=== PATIENT | male | born 1970 | race African-American/Black ===

== ENCOUNTER 2019-02-05 10:41 | Inpatient (IN) | payer MEDICAID ==
[~2019-02-05] VITALS: Ht 175.3 cm; Wt 125.9 kg
[~2019-02-05 10:41] MED LIST: ALDACTONE25 MG PO; BACTRIM DS TABL1 TAB PO; BAYER CHEWABLE81 MG PO; COREG6.25 MG PO; LASIX40 MG PO; NORVASC5 MG PO
[2019-02-05 12:14] LABS: ANION GAP 15.3 mmol/L (8-16); CALCIUM 9.3 mg/dL (8.5-10.1); CARBON DIOXIDE 23.1 mmol/L (21.0-32.0); CREATININE - SERUM 1.3 mg/dL (0.6-1.3); POTASSIUM - SERUM 3.4 mmol/L (3.5-5.1); T4 THYROXINE 7.2 ug/dL (4.7-13.3); THYROID STIMULATING HORMONE 3.62 uIU/mL (0.36-3.74); TROPONIN-I 0.039 ng/mL (0.000-0.060)
--- NOTE | 2019-02-05 12:20 | NUR ---
RECEIVED PT FROM ADMISSIONS. PT IS AAO AND UP AD WENDY. RR EVEN AND UNLABORED ON RA. TELEMETRY APPLIED AND PT IS IN UNCONTROLLED A-FIB AT 125. 20GA INITIATED TO THE RIGHT FOREARM X1 ATTEMPT. PT TOLERATED WELL. FLUSHED WITH 10ML OF NS TO CONFIRM PATENCY. [facility] T[facility] ORDERED FOR LUNCH. PT DENIES ANY NEEDS. NO S/S OF DISTRESS NOTED. WILL CTM.
[2019-02-05 12:21] VITALS: BP 121/90; BMI 41.0
--- NOTE | 2019-02-05 15:38 | NUR ---
PT CURRENTLY SITTING UP IN CHAIR. CALL LIGHT W/I REACH. FAMILY AT BEDSIDE. NO S/S OF DISTRESS NOTED. WILL CTM.
[2019-02-05 20:00] VITALS: BP 115/88
--- NOTE | 2019-02-05 20:01 | NUR ---
REPORT RECEIVED, WILL CONTINUE WITH POC. PATIENT A&O, UP AD WENDY. NO S/SX OF DISTRESS NOTED, RR EVEN AND UNLABORED. PATIENT HAS IV TO RT FA WITH LASIX RUNNING, DRSG IS C/D/I. ICE WATER GIVEN. PATIENT DENIES FURTHER NEEDS AT THIS TIME. CL IN REACH, BED LOCKED AND LOWERED. WILL CTM.
[2019-02-06] VITALS: BP 135/100
[2019-02-06 04:00] VITALS: BP 111/80
[2019-02-06 06:32] LABS: BASOPHILS 0.5 % (0-2); EOSINOPHILS 1.5 % (0-7); HEMATOCRIT 42.5 % (42.0-54.0); HEMOGLOBIN 13.8 g/dL (13.5-17.5); IMMATURE GRANULOCYTES 0.3 % (0-5); MCH 27.9 pg (26.0-34.0); MCHC 32.5 g/dL (31.0-37.0); MEAN PLATELET VOLUME 10.2 fL (7.4-10.4); MONOCYTES 6.4 % (2-11); NEUTROPHILS 65.3 % (40-80); PLATELET COUNT 261 10x3/uL (130-400); RBC 4.94 10x6/uL (4.20-6.10); RDW 16.9 % (11.5-14.5); WBC 9.4 10x3/uL (4.8-10.8)
[2019-02-06 06:36] LABS: ANION GAP 18.2 mmol/L (8-16); CALCIUM 9.3 mg/dL (8.5-10.1); CARBON DIOXIDE 23.7 mmol/L (21.0-32.0); POTASSIUM - SERUM 3.9 mmol/L (3.5-5.1)
--- NOTE | 2019-02-06 07:00 | NUR ---
ROUNDING DONE WITH PATIENT HAVING NO NEEDS VOICED EXCEPT "TIRED". ON HEART MONITOR SHOWING FLUTTER, HR 111. UP AMBULATING IN ROOM, ON ROOM AIR. RIGHT FA PIV SEEN WITH SALINE LOCK. WILL CPOC.
[2019-02-06 09:27] VITALS: BP 119/82
--- NOTE | 2019-02-06 13:18 | NUR ---
RESTING WITH EYES CLOSED, RESP EVEN. APPEARS PAIN FREE. WILL CONTINUE TO MONITOR.
[2019-02-06 13:45] VITALS: BP 111/84
[2019-02-06 14:05] VITALS: Ht 175.3 cm; Wt 125.9 kg
--- NOTE | 2019-02-06 15:21 | NUR ---
PATIENT HAS BEEN IN THE SHOWER AND BED LINENS CHANGED.
[2019-02-06 17:18] VITALS: BP 96/72
--- NOTE | 2019-02-06 17:46 | NUR ---
DENIES NEEDS AT THIS TIME. WILL CONTINUE TO MONITOR AND FOLLOW.
[2019-02-06 20:00] VITALS: BP 117/86
--- NOTE | 2019-02-06 20:00 | NUR ---
INITIAL ROUNDS AND ASSESSMENT COMPLETED. PT ALERT/ORIENTED. RESTING WITH NO DISTRESS. LEFT HAND IS SWOLLEN AND PAINFUL TO TOUCH/MOVEMENT. OFFERED PAIN PILL ON 1ST ROUNDS, PT DECLINED TO HOLD OFF UNTIL BEDTIME MEDS GIVEN. NONLABORED RESPIRATIONS ON ROOM AIR. FLUTTER PER TELEMETRY. SALINE LOCK TO RFA. CPOC.
--- NOTE | 2019-02-06 22:00 | NUR ---
BEDTIME MEDS GIVEN + NORCO PAIN PILL FOR LEFT HAND PAIN. PT PLEASANT AND COOPERATIVE. AT BEDSIDE.
[2019-02-07] VITALS: BP 105/85
[2019-02-07 04:00] VITALS: BP 114/75
--- NOTE | 2019-02-07 04:40 | NUR ---
PT RESTING IN BED. AT BEDSIDE. NO REQUESTS FOR PAIN MEDS SINCE BEDTIME. FLUTTER PER TELEMETRY. CPOC. CALL LIGHT IN REACH.
[2019-02-07 06:13] LABS: ANION GAP 12.9 mmol/L (8-16); CALCIUM 9.1 mg/dL (8.5-10.1); CARBON DIOXIDE 28.5 mmol/L (21.0-32.0); CREATININE - SERUM 1.7 mg/dL (0.6-1.3); POTASSIUM - SERUM 3.4 mmol/L (3.5-5.1)
[2019-02-07 06:16] LABS: BASOPHILS 0.2 % (0-2); EOSINOPHILS 0.8 % (0-7); HEMATOCRIT 41.5 % (42.0-54.0); HEMOGLOBIN 13.8 g/dL (13.5-17.5); IMMATURE GRANULOCYTES 0.4 % (0-5); LYMPHOCYTES 25.7 % (15-50); MCH 27.7 pg (26.0-34.0); MCHC 33.3 g/dL (31.0-37.0); MEAN PLATELET VOLUME 10.2 fL (7.4-10.4); MONOCYTES 7.7 % (2-11); NEUTROPHILS 65.2 % (40-80); PLATELET COUNT 283 10x3/uL (130-400); RBC 4.98 10x6/uL (4.20-6.10); WBC 10.7 10x3/uL (4.8-10.8)
[2019-02-07 06:21] LABS: MCV 83.3 fL (80.0-100.0)
--- NOTE | 2019-02-07 07:15 | NUR ---
RECEIVED PT IN BED AAOX4 RESP UNLABORED DENIES ANY NEEDS OR DISCOMFORT AT THIS TIME
[2019-02-07 08:50] VITALS: BP 117/87
[2019-02-07] MEDS ORDERED: ELIQUIS2.5 MG PO (11:25)
[2019-02-07] MEDS ORDERED: AMIODARONE HCL200 MG PO (11:25)
[2019-02-07] MEDS ORDERED: ENTRESTO 24 MG1 EACH PO (11:26)
[2019-02-07] MEDS ORDERED: COLCRYS0.6 MG PO (11:31)
[2019-02-07 12:30] VITALS: BP 110/80
--- NOTE | 2019-02-07 16:52 | NUR ---
SPOKE WITH DR. BOLANOS FOR D/C. WENT OVER HOME MEDICATION LIST WITH DR HARLEY AND WAS APPROVED BY HIM.
--- NOTE | 2019-02-07 18:19 | NUR ---
REVIEWED DISCHARGE INSTRUCTIONS WITH PT STATES UNDERSTANDING COPY GIVEN DCD SALINE LOCK TO RFA WITH IV CATHETER INTACT SITE FREE OF REDNESS OR EDEMA PT DISCHARGED HOME LEFT UNIT IN STABLE CONDITION VIA W/C WITH ALL PERSONAL BELONGINGS
--- NOTE | 2019-02-09 09:23 | MORECARE ---
CASE MANAGEMENT DISCHARGE SUMMARY PATIENT: MADHURI BATEMAN UNIT: [id number] ADM DATE: 02/05/19 AGE: 48 : 66 SEX: M ROOM/BED: D.2120 AUTHOR: ALPHONSO FISHER PHYSICIAN: REFERRING PHYSICIAN: VILMA GLASGOW MD DATE OF SERVICE: 02/09/19 Discharge Plan Patient Name: MADHURI BATEMAN Facility: [facility]:[place] : 1970 Planned Disposition: Home Anticipated Discharge Date: 02/07/19 Discharge Date: 02/07/2019 Expected LOS: 2 Initial Reviewer: [id number] Initial Review Date: 02/09/2019 Generated: 02/09/19 10:22 am Patient Name: MADHURI BATEMAN Page [id number] at 0923 All edits/amendments must be made on the electronic document DICTATION DATE: 02/09/19921 WINDMILL MECHANIC: RYLIE 02/09/19921 RPT#: [id number] DC DATE:02/07/19 STATUS: DIS IN [facility] [address] [place] [address] END OF REPORT
== END 2019-02-07 18:19 | disposition home or self-care (01) | DRG 310 ==
LOC: D.M2 10:41
PROVIDERS: ADMIT Family Medicine; ATTEND Family Medicine
DX: I48.91 Unspecified atrial fibrillation (principal); I48.92 Unspecified atrial flutter; I42.5 Other restrictive cardiomyopathy; I12.9 Hypertensive chronic kidney disease with stage 1 through stage 4 chronic kidney disease, or unspecified chronic kidney disease; N18.9 Chronic kidney disease, unspecified

== ENCOUNTER 2019-03-25 09:30 | Outpatient (CLI) | payer MEDICAID ==
[~2019-03-25] VITALS: Ht 175.3 cm; Wt 119.1 kg
--- NOTE | ~2019-03-25 | HEMODYNAMI ---
PATIENT:MADHURI BATEMAN MEDICAL RECORD: [id number] : 66 LOCATION:[facility] ADMISSION DATE: 03/25/19 Generatedon:03/25/201912:54 Patient name: MADHURI BATEMAN Patient #: [id number] SSN: D OB: 1970 Date of study: 03/25/2019 Page: Of Hemodynamic Procedure Report Patient Data Patient Demographics Procedure consent was obtained First Name: MADHURI Gender: Male Last Name: FRANSICO : 1970 Patient #: [id number] Age: 48 year(s) Race: Black Additional ID: [id number] Contact details [address]: [address] [place] [address] State: [place] City: [place] Zip code: [address] Past Medical History Allergies: No known allergies Admission Admission Data Admission Date: 03/25/2019 Admission Time: 9:30 Arrival Date: 03/25/2019 Arrival Time: 11:00 Admit Source: Other Insurance Payor: Medicaid Height (in.): 68.9 BSA: 2.32 (m2) Height (cm.): 175 BMI: 38.86 (kg/m2) Weight (lbs.): 262.35 Weight (kg.): 119 Lab Results Lab Result Date: 03/25/2019 Lab Result Time: 0:00 Biochemistry Name Units Result Min Max BUN mg/dl 23 --(----)-* 7 18 Creatinine mg/dl 1.6 --(----)-* 0.6 1.3 eGFR ml/min 49 *-(----)-- 90 120 NONAFRICAN CBC Name Units Result Min Max Hemoglobin g/dl 14.5 --(*---)-- 13.5 17.5 Procedure Procedure Types Cath Procedure Diagnostic Procedure Cardioversion External Procedure Description Procedure Date Procedure Date: 03/25/2019 Procedure Start Time: 12:42 Procedure End Time: 12:49 Procedure Staff Name Function Karina Yun RT Line Supply Aris Suazo MD Performing Physician Silvio Streeter RT Monitor Milton Joseph RN Nurse Roman Birch SENIOR SCRUM MASTER Additional personnel Procedure Data Cath Procedure Fluoroscopy Diagnostic fluoroscopy Total fluoroscopy Time: 0 time: 0 min min Diagnostic fluoroscopy Total fluoroscopy dose: 0 dose: 0 mGy mGy Contrast Material Contrast Material Type Amount (ml) Isovue 300 0 Procedure Complications No complications Procedure Medications Medication Administration Route Dosage 0.9% NaCl I.V. 100 ml/hr Oxygen etCO2 Nasal cannula 5 l/min Refer to Anesthesia Notes for Sedation Medications Hemodynamics Rest HGB: 14.5 (g/dl) O2 Consumption: Estimated: 292.51 (ml/min) O2 Consumption index ed: Estimated:126.08 (ml/min/m) Heart Rate: 87 (bpm) Snapshots Pre Cath Intra NCS Post Cath Vital Signs Time Heart Resp SPO2 etCO2 NIBP (mmHg) Rhythm Pain Sedation Rate (ipm) (%) (mmHg) Status Level (bpm) 12:30:26 76 10 100 0 119/90(105) A-Flutter 0 (11) 10(A) , No pain 12:34:26 79 23 98 19.4 130/98(105) A-Flutter 0 (11) 10(A) , No pain 12:38:32 100 19 97 0 111/75(103) A-Flutter 0 (11) 8(A) , No pain 12:43:23 60 13 99 17.9 113/80(98) NSR 0 (11) 9(A) , No pain 12:47:41 24 100 1.4 77/35(68) NSR 0 (11) 9(A) , No pain 12:49:31 100 20.1 128/102(109) NSR 0 (11) 9(A) , No pain Medications Time Medication Route Dose Verified Delivered Reason Notes Effective ness by by 12:32:04 0.9% NaCl I.V. 100 Milton Milton Per ml/hr Jake Joseph physician RN RN 12:32:19 Oxygen etCO2 5 Milton Milton for low Nasal l/min Jake Joseph 02 sats cannula RN RN 12:33:58 Refer to Roman Owens for Anesthesia Kelsy Tierney sedation Notes for SENIOR SCRUM MASTER SENIOR SCRUM MASTER Sedation Medications Procedure Log Time Note 12:18:49 Diagnostic Cath Status : Elective 12:19:09 Admit Source: Other 12::19 Arrival Date: 03/25/2019 11:00:00 AM 12:20:54 Insurance Payor : Medicaid 12:21:03 Patient Height : 68.9 inches 12:21:07 Patient Weight : 262.35 lbs 12::46 Lab Result : eGFR NONAFRICAN 49 ml/min 12::46 Lab Result : Hemoglobin 14.5 g/dl 12::46 Lab Result : BUN 23 mg/dl 12::46 Lab Result : Creatinine 1.6 mg/dl 12:22:11 Milton Joseph RN sent for patient. Start room use. 12:22:15 Time tracking: Regular hours (M-F 7:00 - 5:00) 12::20 Plan of Care:Hemodynamics will remain stable., Cardiac rhythm will remain stable., Comfort level will be maintained., Respiratory function will remain adequate., Patient/ family verbilizes understanding of procedure., Procedure tolerated without complication., Recovers from procedure without complications.. 12:25:53 Patient received from Pre/Post Procedure Room to [facility] 2 Alert and oriented. Tansferred to table in Supine position. 12:25:54 Warm blankets applied, and andrew hugger turned on for patient comfort. 12:25:56 Signed procedure consent form obtained from patient. 12:25:57 Correct patient and procedure confirmed by team. 12:25:58 ECG and BP/O2 sat monitors applied to patient. 12:29:16 Vital chart was started 12:30:59 Baseline sample Acquired. 12:31:02 Rhythm: atrial fibrillation 12:31:04 Full Disclosure recording started 12:31:12 H&P Date Dictated: 03/16/2019 Within 30 days and on chart., H&P Addendum completed by physician on day of procedure. (MUST COMPLETE FOR ALL OUTPATIENTS). 12:31:13 Pre-op teaching completed and patient verbalized understanding. 12:31:13 Pre-procedure instructions explained to patient. 12:31:14 Family in waiting room. 12:31:16 Patient NPO since Midnight. 12:31:27 Patient allergic to No known allergies 12:31:30 Is the patient allergic to Iodine/contrast media? No. 12:31:34 Is patient on blood thinner?Yes 12:31:37 ACC The patient was administered the following blood thiners within the last 24 hours: Eliquis 12:31:39 Patient diabetic? No. 12:31:42 Previous problem with sedation/anesthesia? No ? 12:31:43 Snore? Yes 12:31:44 Sleep apnea? No 12:31:45 Deviated septum? No 12:31:46 Sticks out tongue? Yes 12:31:46 Opens mouth fully? Yes 12:31:48 Airway obstruction? No ? 12:31:50 Dentures? No ? 12:32:04 0.9% NaCl 100 ml/hr I.V. was administered by Milton Joseph RN; Per physician; Verbal order read back and verified. 12:32:19 Oxygen 5 l/min etCO2 Nasal cannula was administered by Milton Joseph RN; for low 02 sats; Verbal order read back and verified. 12:32:21 Alarms reviewed by Ian Black 12:32:29 Quick Combo opened to sterile field. 12:32:42 Physician arrived 12:32:43 --------ALL STOP TIME OUT------ 12:32:52 Physical assessment completed. ASA score P 3 - A patient with severe systemic disease as per Aris Suazo MD. 12:32:58 Sedation plan: TIVA Medication:Propofol 12:33:58 Refer to Anesthesia Notes for Sedation Medications was administered by Roman Tierney CRNA; for sedation; Verbal order read back and verified. 12:35:11 Quick combo pads placed on patients chest and back. 12:41:00 Procedure started. 12:42:13 Defibrillator synced and charged to 275 Joules. 12:42:17 Shock delivered. 12:42:31 Patient cardioverted to sinus rhythm . 12:42:36 Procedure ended.(Physican Out) 12:44:06 Fluoroscopy time 00.00 minutes. 12:44:07 Fluoroscopy dose: 0 mGy 12:44:07 Flurop Dose total: 0 12:44:09 Dose Area Product 0 mGy/cm. 12:44:11 Contrast amount:Isovue 300 0ml. 12:47:44 Post-procedure physical assessment completed. ASA score P 3 - A patient with severe systemic disease as per Aris Suazo MD. 12:47:50 Post procedure rhythm: unchanged. 12:47:57 Post procedure instruction explained to patient.Patient verbalizes understanding. 12:48:34 Procedure and supply charges have been captured, reviewed, submitted and are correct. 12:48:36 Procedure Complication : No complications 12:49:15 See physician's report for complete and final results. 12:49:17 Report given to Pre/Post Procedure Room. 12:49:19 Patient transfered to Pre/Post Procedure Room with Stretcher. 12:49:22 Full Disclosure recording stopped 12:49:22 Procedure ended. 12:49:46 End room use (Document Last) Device Usage Item Manufacture Quantity Catalog Hospital Part Current Minimal Lot# / Name Number Charge Number Stock Stock Herii al# Code Yoomly 1 [id number] Combo Signature Audit Condon Stage Time Signature Unsigned Intra-Procedure 03/25/2019 Silvio Streeter 12:52:17 PM RT(R); Aris Suazo MD; Milton Joseph RN [place] [id number] [place] [address]
[~2019-03-25 09:30] MED LIST changes: +AMIODARONE HCL200 MG PO; +COLCRYS0.6 MG PO; +ELIQUIS2.5 MG PO; +ENTRESTO 24 MG1 EACH PO
[2019-03-25 10:34] VITALS: BP 188/88; Ht 175.3 cm; Wt 119.1 kg
[2019-03-25 10:46] LABS: BASOPHILS 0.9 % (0-2); EOSINOPHILS 3.4 % (0-7); HEMATOCRIT 43.3 % (42.0-54.0); HEMOGLOBIN 14.5 g/dL (13.5-17.5); IMMATURE GRANULOCYTES 0.2 % (0-5); LYMPHOCYTES 27.8 % (15-50); MCH 27.4 pg (26.0-34.0); MCHC 33.5 g/dL (31.0-37.0); MCV 81.7 fL (80.0-100.0); MEAN PLATELET VOLUME 9.8 fL (7.4-10.4); MONOCYTES 3.9 % (2-11); NEUTROPHILS 63.8 % (40-80); PLATELET COUNT 297 10x3/uL (130-400); RDW 16.1 % (11.5-14.5); WBC 5.6 10x3/uL (4.8-10.8)
[2019-03-25 10:54] LABS: ANION GAP 14.5 mmol/L (8-16); CALCIUM 9.4 mg/dL (8.5-10.1); CARBON DIOXIDE 25.5 mmol/L (21.0-32.0); CREATININE - SERUM 1.6 mg/dL (0.6-1.3)
[2019-03-25 11:24] LABS: INR 1.1 (0.85-1.17); PROTIME 13.7 SECONDS (11.6-15.0)
--- NOTE | 2019-03-25 13:00 | NUR ---
PATIENT ARRIVED TO ROOM 7, PLACED ON CM. VSS. PATIENT ROUSES TO VERBAL STIMULI.
--- NOTE | 2019-03-25 13:15 | NUR ---
PATIENT RESTING. VSS ON ROOM AIR. SO AT BEDSIDE, QUESTIONS ANSWERED. NO C/O PAIN, NUMBNESS, OR TINGLING. NO N/V.
--- NOTE | 2019-03-25 13:45 | NUR ---
PATIENT TRANSPORTED VIA WHEELCHAIR TO CAR WITH S.O. DRIVING, ALL BELONGINGS WITH PATIENT.
--- NOTE | 2019-03-25 14:25 | NUR ---
PATIENT AWAKE AND ALERT, EDUCATION GIVEN TO PATIENT AND SIGNIFICANT OTHER, ALL QUESTIONS ANSWERED, BOTH VOICE UNDERSTANDING. VSS ON ROOM AIR. NO C/O PAIN, NUMBNESS, OR TINGLING. IV REMOVED. PATIENT VOIDED WITHOUT DIFFICULTY.
--- NOTE | 2019-03-26 09:14 | EC ---
PATIENT:MADHURI BATEMAN DATE OF SERVICE: 03/25/19 SEX: M MEDICAL RECORD: [id number] DATE OF : [birth year] LOCATION:D.[facility] AGE OF PATIENT: 48 ADMISSION DATE: 03/25/19 REFERRING PHYSICIAN: INTERPRETING PHYSICIAN: DOREEN SUAZO MD ECHOCARDIOGRAM REPORT ECHO CHARGES 4 ECHO COMPLETE Date: 03/25/19 CLINICAL DIAGNOSIS: AFIB, CARDIOMYOPATHY ECHOCARDIOGRAPHIC MEASUREMENTS (adult normal given) AC root (d.<3.7cm) 2.9 cm LV Septum d (<1.2 cm> 1.0 cm Valve Excursion 1.4 cm LV Septum (systole) 1.2 cm Left Atria (s.<4.0cm> 3.9 cm LVPW d(<1.2cm) 1.1 cm RV (d.<2.3cm) 2.6 cm LVPW (sytole) 1.5 cm LV diastole(<5.6CM) 6.7 cm MV E-F(>70mm/sec) cm LV systole 5.4 cm LVOT Diameter 2.3 cm MV exc.(>10mm) cm Est.ejection fraction (50-75%) % DOPPLER: LVIT cm/sec A 26 cm/sec E 66 cm/sec LA cm/sec RVSP 25.3 mmHg LVOT 71 cm/sec AOP1/2T m/s Asc. Ao 109 cm/sec RVOT 48 cm/sec RA cm/sec PA 54 cm/sec AV Gradient Peak 4.7 mmHg AV Mean 3.2 mmHg AV Area 2.7 cm MV Gradient Peak 2.9 mmHg MV Mean 1.2 mmHg MV Area cm COMMENTS: Aquatic Centre Manager: Jana DICKERSON Custom Shop Worker: Areli Suazo TAPE# PACS Pericardial Effusion N DATE OF SERVICE: 03/25/2019 ECHOCARDIOGRAM FINDINGS: 1. Left ventricular chamber size is dilated. Left ventricular systolic function is markedly reduced at 15% to 20%. 2. Left atrium is upper limits of normal. Right atrium and right ventricle chamber sizes are mildly dilated. 3. Valvular structures have normal structure and motion. ECHOCARDIOGRAM REPORT [id number] MADHURI BATEMAN 4. Doppler interrogation only reveals mild aortic insufficiency, mild mitral regurgitation, no other valvular insufficiency or stenosis. Pulmonary systolic pressure is estimated at 25 mmHg. 5. No evidence of pericardial effusion or left ventricular thrombus. TRANSINT:[id number] Voice Confirmation ID: [id number] DOCUMENT ID: [id number] DOREEN SUAZO MD at 0914 CC: [id number] DICTATION DATE: 03/25/19 1228 BARREL BRIDGE ASSEMBLER: 03/25/192039 DEP CLI 03/25/19 [place] [id number] [place] [id number]
--- NOTE | 2019-03-26 09:14 | OP ---
PATIENT NAME: MADHURI BATEMAN MEDICAL RECORD: [id number] :66 LOCATION:D.CAT ADMISSION DATE: SURGEON: DOREEN OSWALD MD DATE OF OPERATION: 03/25/2019 PROCEDURE: DC cardioversion. INDICATION: Atrial fibrillation. IV conscious sedation per anesthesia. Continuous heart rate, O2 saturation, blood pressure monitoring were all undertaken, all of which remains stable. He received 1 shock at 275 joules restoring sinus rhythm. OVERALL IMPRESSION: Successful DC cardioversion from atrial fibrillation to sinus rhythm. TRANSINT:[id number] Voice Confirmation ID: [id number] DOCUMENT ID: [id number] DOREEN OSWALD MD at 0914 CC: [id number] DICTATION DATE: 03/25/19 1245 ARBORER: 03/25/192110 DEP CLI 03/25/19 [facility] [address] [place] [address]
== END 2019-03-25 13:45 ==
LOC: D.CATH 09:30 → D.ECHO 11:00 → D.CATH 12:30
PROVIDERS: ATTEND Internal Medicine Interventional Cardiology
DX: I48.91 Unspecified atrial fibrillation (principal)

== ENCOUNTER 2019-07-03 23:25 | Emergency (ER) | payer MEDICAID ==
[2019-03-25 10:34] VITALS: Ht 175.3 cm; Wt 123.2 kg
[~2019-07-03] VITALS: Ht 175.3 cm; Wt 123.2 kg
[2019-07-03 23:58] LABS: BASOPHILS 0.4 % (0-2); EOSINOPHILS 0.5 % (0-7); HEMATOCRIT 34.7 % (42.0-54.0); IMMATURE GRANULOCYTES 0.3 % (0-5); LYMPHOCYTES 10.7 % (15-50); MCH 27.4 pg (26.0-34.0); MCHC 31.7 g/dL (31.0-37.0); MCV 86.3 fL (80.0-100.0); MEAN PLATELET VOLUME 8.9 fL (7.4-10.4); MONOCYTES 6.3 % (2-11); NEUTROPHILS 81.8 % (40-80); PLATELET COUNT 346 10x3/uL (130-400); RBC 4.02 10x6/uL (4.20-6.10); RDW 16.4 % (11.5-14.5); WBC 11.1 10x3/uL (4.8-10.8)
[2019-07-04 00:05] LABS: CALC OSMOLALITY 279 mosm/kg (275-300); CALCIUM 9.3 mg/dL (8.5-10.1); CARBON DIOXIDE 24.9 mmol/L (21.0-32.0); CHLORIDE - SERUM 104 mmol/L (98-107); CREATININE - SERUM 1.7 mg/dL (0.6-1.3); GLUCOSE 111 mg/dL (74-106); POTASSIUM - SERUM 4.5 mmol/L (3.5-5.1); SODIUM 138 mmol/L (136-145); UREA NITROGEN 21 mg/dL (7-18); eGFR NON AFRICAN AMERICAN 45 mL/min (90-120)
[2019-07-04 00:23] LABS: ALBUMIN 2.4 g/dL (3.4-5.0); ALKALINE PHOSPHATASE 115 U/L (46-116); ALT (SGPT) 28 U/L (10-68); BILIRUBIN - TOTAL 0.72 mg/dL (0.2-1.3); CKMB 1.1 U/L (0.0-3.6); CREATINE KINASE 59 UL (21-232); PRO BNP 2402 pg/mL (0-125); PROTEIN - SERUM 8.6 g/dL (6.4-8.2)
[2019-07-04 02:25] VITALS: BP 156/87
== END 2019-07-04 02:25 | disposition home or self-care (01) ==
LOC: D.ER 23:25
PROVIDERS: Family Medicine
DX: I11.0 Hypertensive heart disease with heart failure (principal); I50.9 Heart failure, unspecified; I48.92 Unspecified atrial flutter

== ENCOUNTER 2019-08-15 03:30 | Inpatient (IN) | payer MEDICAID ==
[~2019-08-15] VITALS: Ht 175.3 cm; Wt 105.0 kg
[2019-08-15] VITALS (22 sets, daily range): BP systolic 78–157; BP diastolic 61–148; Ht 175.3 cm; Wt 105.0 kg
[2019-08-15 03:38] LABS: BASOPHILS 0.1 % (0-2); EOSINOPHILS 0 % (0-7); HEMATOCRIT 35.3 % (42.0-54.0); HEMOGLOBIN 11.2 g/dL (13.5-17.5); IMMATURE GRANULOCYTES 0.8 % (0-5); LYMPHOCYTES 5.6 % (15-50); MCH 26.9 pg (26.0-34.0); MCHC 31.7 g/dL (31.0-37.0); MCV 84.9 fL (80.0-100.0); MEAN PLATELET VOLUME 8.9 fL (7.4-10.4); NEUTROPHILS 89.5 % (40-80); PLATELET COUNT 251 10x3/uL (130-400); RBC 4.16 10x6/uL (4.20-6.10); RDW 17.3 % (11.5-14.5); WBC 16.7 10x3/uL (4.8-10.8)
[2019-08-15] MEDS ORDERED: HYDROCODON-ACE1 EA10 PO (03:39)
[2019-08-15] MEDS ORDERED: COREG6.25 MG PO (03:40)
[2019-08-15] MEDS ORDERED: ENTRESTO 24 MG1 EACH PO (03:41)
[2019-08-15 03:45] LABS: CALC OSMOLALITY 276 mosm/kg (275-300); CALCIUM 8.8 mg/dL (8.5-10.1); CARBON DIOXIDE 22.7 mmol/L (21.0-32.0); CHLORIDE - SERUM 101 mmol/L (98-107); GLUCOSE 136 mg/dL (74-106); POTASSIUM - SERUM 4.1 mmol/L (3.5-5.1); SODIUM 136 mmol/L (136-145); UREA NITROGEN 20 mg/dL (7-18); eGFR NON AFRICAN AMERICAN 38 mL/min (90-120)
[2019-08-15 04:05] LABS: ALBUMIN 2.7 g/dL (3.4-5.0); ALKALINE PHOSPHATASE 134 U/L (30-120); ALT (SGPT) 40 U/L (10-68); BILIRUBIN - TOTAL 2.54 mg/dL (0.2-1.3); CKMB 1.5 U/L (0.0-3.6); CREATINE KINASE 142 UL (21-232); PRO BNP 15477 pg/mL (0-125); PROTEIN - SERUM 8.6 g/dL (6.4-8.2)
[2019-08-15 04:07] LABS: TROPONIN-I 0.486 ng/mL (0.000-0.060)
[2019-08-15 06:16] LABS: CKMB 1.6 U/L (0.0-3.6); CREATINE KINASE 163 UL (21-232)
[2019-08-15 06:17] LABS: TROPONIN-I 0.525 ng/mL (0.000-0.060)
[2019-08-15] MEDS ORDERED: COREG25 MG PO (09:03)
[2019-08-15 11:56] LABS: CKMB 1.3 U/L (0.0-3.6)
[2019-08-15 11:59] LABS: CREATINE KINASE 260 UL (21-232)
[2019-08-15 12:01] LABS: TROPONIN-I 0.885 ng/mL (0.000-0.060)
[2019-08-15 15:00] LABS: % SATURATION 5 % (15-55); IRON 18 ug/dl (35-150); TOTAL IRON BIND CAPACITY 305 ug/dl (260-445); UNSAT IRON BIND CAPACITY 287 ug/dl (150-375)
[2019-08-15 18:33] LABS: CKMB 2.8 U/L (0.0-3.6)
[2019-08-15 18:42] LABS: CREATINE KINASE 492 UL (21-232)
[2019-08-15 18:43] LABS: TROPONIN-I 1.237 ng/mL (0.000-0.060)
[2019-08-16] VITALS (22 sets, daily range): BP systolic 83–109; BP diastolic 65–94
[2019-08-16 06:07] LABS: HEMATOCRIT 33.3 % (42.0-54.0); HEMOGLOBIN 10.8 g/dL (13.5-17.5); MCHC 32.4 g/dL (31.0-37.0); MCV 83.3 fL (80.0-100.0); MEAN PLATELET VOLUME 9.7 fL (7.4-10.4); PLATELET COUNT 231 10x3/uL (130-400); RDW 17.9 % (11.5-14.5); WBC 25.1 10x3/uL (4.8-10.8)
[2019-08-16 06:20] LABS: ALBUMIN 2.2 g/dL (3.4-5.0); ANION GAP 20.2 mmol/L (8-16); BILIRUBIN - TOTAL 2.98 mg/dL (0.2-1.3); CALCIUM 8.5 mg/dL (8.5-10.1); CARBON DIOXIDE 18.3 mmol/L (21.0-32.0); POTASSIUM - SERUM 4.5 mmol/L (3.5-5.1); PROTEIN - SERUM 8.1 g/dL (6.4-8.2)
[2019-08-16 06:21] LABS: CREATININE - SERUM 3.3 mg/dL (0.6-1.3)
[2019-08-16 07:08] LABS: LYMPHOCYTES 6 % (15-50); MONOCYTES 4 % (2-11); NEUTROPHILS 57 % (40-80)
[2019-08-16 07:09] LABS: PLATELET ESTIMATE NORMAL
[2019-08-17] VITALS (24 sets, daily range): BP systolic 91–130; BP diastolic 67–98
[2019-08-17 05:08] LABS: BASOPHILS 0 % (0-2); EOSINOPHILS 0 % (0-7); HEMATOCRIT 33.4 % (42.0-54.0); HEMOGLOBIN 11.1 g/dL (13.5-17.5); IMMATURE GRANULOCYTES 0.6 % (0-5); LYMPHOCYTES 5.1 % (15-50); MCH 27.1 pg (26.0-34.0); MCHC 33.2 g/dL (31.0-37.0); MCV 81.7 fL (80.0-100.0); MEAN PLATELET VOLUME 9.8 fL (7.4-10.4); MONOCYTES 4.5 % (2-11); NEUTROPHILS 89.8 % (40-80); PLATELET COUNT 211 10x3/uL (130-400); RBC 4.09 10x6/uL (4.20-6.10); WBC 23.1 10x3/uL (4.8-10.8)
[2019-08-17 05:15] LABS: ALBUMIN 2.3 g/dL (3.4-5.0); BILIRUBIN - TOTAL 2.18 mg/dL (0.2-1.3); CALCIUM 8.1 mg/dL (8.5-10.1); CREATININE - SERUM 3.6 mg/dL (0.6-1.3); POTASSIUM - SERUM 3.9 mmol/L (3.5-5.1); PROTEIN - SERUM 7.6 g/dL (6.4-8.2)
[2019-08-17 05:37] LABS: ANION GAP 15.7 mmol/L (8-16); CARBON DIOXIDE 24.2 mmol/L (21.0-32.0)
--- NOTE | 2019-08-17 14:33 | OP ---
PATIENT NAME: MADHURI BATEMAN MEDICAL RECORD: [id number] :[birth year] LOCATION:.[facility] D.2307 ADMISSION DATE:08/15/19 SURGEON: RUDY TREVINO MD DATE OF OPERATION: 08/15/2019 PREOPERATIVE DIAGNOSES: 1. Uncontrolled atrial fibrillation 2. Renal insufficiency. 3. Lack of significant peripheral IV access. POSTOPERATIVE DIAGNOSES: 1. Uncontrolled atrial fibrillation 2. Renal insufficiency. 3. Lack of significant peripheral IV access. PROCEDURE: Insertion of right internal jugular triple lumen central venous catheter. SURGEON: Rudy Trevino MD CURB SETTER HELPER: None. BLOOD LOSS: Minimal. ANESTHESIA: Local. This procedure was performed yesterday on 08/15/2019, was not until today that I dictated this procedure note. OPERATIVE COURSE: The patient was seen in his ICU room. He was positioned supine. The right neck was sterilely prepped and draped. Local anesthetic was used to infiltrate the skin and subcutaneous tissue at the base of right neck. Right internal jugular vein was percutaneously accessed in an antegrade fashion. Guidewire was passed easily. A small skin kristin was accomplished. A vascular dilator was used to dilate a subcutaneous tract. A 16-cm triple lumen central venous catheter was inserted to the hub. It was sutured in place times 3. All lumens flushed easily and aspirated dark, nonpulsatile blood. A sterile dressing was applied. A chest x-ray revealed adequate placement of the central venous line. Today while on rounds, I was told that 2 of the lumens were not functioning. I was able to clear both lines by utilizing normal saline within a tuberculin syringe and by injecting it rapidly down the 2 lumens that were not functioning. This cleared all 3 lines, all 3 flushed easily and aspirated dark, nonpulsatile blood. TRANSINT:[id number] Voice Confirmation ID: [id number] DOCUMENT ID: [id number] OPERATIVE REPORT [id number] FRANSICOMADHURI RUDY TREVINO MD at 1433 CC: [id number] DICTATION DATE: 08/16/191809 BEHAVIOR ANALYST: 08/17/19 0446 ADM IN [facility] [address] [place] [address]
--- NOTE | 2019-08-17 15:35 | MORECARE ---
CASE MANAGEMENT DISCHARGE SUMMARY PATIENT: MADHURI BATEMAN UNIT: [id number] ADM DATE: 08/15/19 AGE: 49 : 66 SEX: M ROOM/BED: D.2307 AUTHOR: NATALIA,DOC PHYSICIAN: REFERRING PHYSICIAN: NOAH PARRA MD DATE OF SERVICE: 08/17/19 Discharge Plan Patient Name: MADHURI BATEMAN Facility: [facility]:[place] : 1970 Planned Disposition: Anticipated Discharge Date: Discharge Date: Expected LOS: Initial Reviewer: [id number] Initial Review Date: 08/17/2019 Generated: 08/17/19 4:34 pm Comments DCP- Discharge Planning Updated by [id number]: Muriel Benz on 08/17/19 2:[address] Patient Name: MADHURI BATEMAN Admission Status: ER Accout number: [id number] Admission Date: 08-15-2019 : 1970 Admission Diagnosis: Attending: NOAH PARRA Current LOS: 2 Anticipated DC Date: Planned Disposition: Primary Insurance: MEDICAID [place] Discharge Planning Comments: CM MET WITH PATIENT AFTER OBTAINING VERBAL CONSENT. PATIENT STATES MAY NEED HOME HEALTH AND OXYGEN AT TIME OF DC. [facility] SIGNED FOR ANY HH AND ANY DME. MAY NEED WALK TEST PRIOR TO DC. NO OTHER NEEDS IDENTIFIED. CM TO FOLLOW AND ASSIST NEEDED. Seed Cleaner Operator: Muriel Benz DCPIA - Discharge Planning Initial Assessment Updated by [id number]: Muriel Bezn on 08/17/19 3:28 pm * Is the patient Alert and Oriented? Yes * PCP DANIKA * Pharmacy [facility] * Preadmission Environment Home with Family * ADLs Independent * Additional services required to return to the preadmission environment? Yes * Can the patient safely return to the preadmission environment? Yes * Has this patient been hospitalized within the prior 30 days at any hospital? No Coverage Notice Reviewer: [id number] - Muriel Benz Notice Issued Date-Time: 08/17/2019 15:25 Notice Type: Patient Choice Letter Notice Delivered To: Patient Relationship to Patient: Support Team Member Name: Delivery Method: HAND - Hand Delivered Evelina Days: Prior Verbal Notification: Recipient Understood Notice: Yes Recipient Signature: Yes Med Rec Note Co-signed by Attending: Coverage Notice Comment: ANY HH, ANY DME COMPANY Patient Name: MADHURI BATEMAN Page 81213 at 1535 All edits/amendments must be made on the electronic document DICTATION DATE: 08/17/191533 POLYSTYRENE MOLDING MACHINE TENDER: RYLIE 08/17/191533 RPT#: [id number] DC DATE: STATUS: ADM IN [facility] [address] [place] [address] END OF REPORT
[2019-08-18] VITALS (23 sets, daily range): BP systolic 109–153; BP diastolic 77–107
[2019-08-18 04:26] LABS: BASOPHILS 0.1 % (0-2); EOSINOPHILS 0 % (0-7); HEMATOCRIT 32.8 % (42.0-54.0); HEMOGLOBIN 11.3 g/dL (13.5-17.5); IMMATURE GRANULOCYTES 0.7 % (0-5); LYMPHOCYTES 5.7 % (15-50); MCH 27.5 pg (26.0-34.0); MCHC 34.5 g/dL (31.0-37.0); MCV 79.8 fL (80.0-100.0); MEAN PLATELET VOLUME 9.2 fL (7.4-10.4); NEUTROPHILS 88.5 % (40-80); PLATELET COUNT 203 10x3/uL (130-400); RBC 4.11 10x6/uL (4.20-6.10); RDW 16.4 % (11.5-14.5); WBC 19.2 10x3/uL (4.8-10.8)
[2019-08-18 04:59] LABS: ALBUMIN 2.1 g/dL (3.4-5.0); ANION GAP 14.2 mmol/L (8-16); BILIRUBIN - TOTAL 1.7 mg/dL (0.2-1.3); CALCIUM 8.7 mg/dL (8.5-10.1); CARBON DIOXIDE 24.8 mmol/L (21.0-32.0); CREATININE - SERUM 3.4 mg/dL (0.6-1.3); PROTEIN - SERUM 8.4 g/dL (6.4-8.2)
--- NOTE | 2019-08-18 16:19 | MORECARE ---
CASE MANAGEMENT DISCHARGE SUMMARY PATIENT: MADHURI BATEMAN UNIT: [id number] ADM DATE: 08/15/19 AGE: 49 : 66 SEX: M ROOM/BED: D.2307 AUTHOR: NATALIA,DOC PHYSICIAN: REFERRING PHYSICIAN: NOAH PARRA MD DATE OF SERVICE: 08/18/19 Discharge Plan Patient Name: MADHURI BATEMAN Facility: [facility]:[place] : 1970 Planned Disposition: Anticipated Discharge Date: Discharge Date: Expected LOS: Initial Reviewer: [email or web address] Initial Review Date: 08/17/2019 Generated: 08/18/19 5:19 pm DCP- Discharge Planning Updated by [id number]: Muriel Benz on 08/17/19 2:[address] Patient Name: MADHURI BATEMAN Admission Status: ER Accout number: [id number] Admission Date: 08-15-2019 : 1970 Admission Diagnosis: Attending: NOAH PARRA Current LOS: 2 Anticipated DC Date: Planned Disposition: Primary Insurance: MEDICAID [place] Discharge Planning Comments: CM MET WITH PATIENT AFTER OBTAINING VERBAL CONSENT. PATIENT STATES MAY NEED HOME HEALTH AND OXYGEN AT TIME OF DC. [facility] SIGNED FOR ANY HH AND ANY DME. MAY NEED WALK TEST PRIOR TO DC. NO OTHER NEEDS IDENTIFIED. CM TO FOLLOW AND ASSIST NEEDED. Transit Mixer Operator: Muriel Benz DCPIA - Discharge Planning Initial Assessment Updated by [email or web address]: Muriel Benz on 08/17/19 3:28 pm * Is the patient Alert and Oriented? Yes * PCP DANIKA * Pharmacy [facility] * Preadmission Environment Home with Family * ADLs Independent * Additional services required to return to the preadmission environment? Yes * Can the patient safely return to the preadmission environment? Yes * Has this patient been hospitalized within the prior 30 days at any hospital? No Coverage Notice Reviewer: [id number] - Muriel Benz Notice Issued Date-Time: 08/17/2019 15:25 Notice Type: Patient Choice Letter Notice Delivered To: Patient Relationship to Patient: Chef Instructor Name: Delivery Method: HAND - Hand Delivered Evelina Days: Prior Verbal Notification: Recipient Understood Notice: Yes Recipient Signature: Yes Med Rec Note Co-signed by Attending: Coverage Notice Comment: ANY HH, ANY DME COMPANY Last DP export: 08/17/19 2:35 p Patient Name: MADHURI BATEMAN Page [phone] at 1619 All edits/amendments must be made on the electronic document DICTATION DATE: 08/18/191618 AMBULATORY CARE NURSE: RYLIE 08/18/191618 RPT#: [id number] DC DATE: STATUS: ADM IN [facility] [address] [place] [address] END OF REPORT
[2019-08-19] VITALS (13 sets, daily range): BP systolic 108–141; BP diastolic 79–108
[2019-08-19 06:32] LABS: ALBUMIN 2.5 g/dL (3.4-5.0); ANION GAP 15.7 mmol/L (8-16); BILIRUBIN - TOTAL 2.53 mg/dL (0.2-1.3); CALCIUM 9.3 mg/dL (8.5-10.1); CARBON DIOXIDE 27.9 mmol/L (21.0-32.0); CREATININE - SERUM 2.9 mg/dL (0.6-1.3); POTASSIUM - SERUM 3.6 mmol/L (3.5-5.1); PROTEIN - SERUM 8.2 g/dL (6.4-8.2)
[2019-08-19 08:08] LABS: HEMATOCRIT 37.3 % (42.0-54.0); HEMOGLOBIN 12.6 g/dL (13.5-17.5); MCH 26.6 pg (26.0-34.0); MCHC 33.8 g/dL (31.0-37.0); MCV 78.9 fL (80.0-100.0); MEAN PLATELET VOLUME 10.1 fL (7.4-10.4); PLATELET COUNT 241 10x3/uL (130-400); RBC 4.73 10x6/uL (4.20-6.10); RDW 16.6 % (11.5-14.5); WBC 20.5 10x3/uL (4.8-10.8)
[2019-08-19 10:02] LABS: LYMPHOCYTES 6 % (15-50); MONOCYTES 7 % (2-11); NEUTROPHILS 86 % (40-80)
[2019-08-19 10:03] LABS: PLATELET ESTIMATE NORMAL
[2019-08-20] VITALS (19 sets, daily range): BP systolic 91–134; BP diastolic 65–104
[2019-08-20 06:13] LABS: ALBUMIN 2.9 g/dL (3.4-5.0); ANION GAP 12.8 mmol/L (8-16); BILIRUBIN - TOTAL 3.06 mg/dL (0.2-1.3); CALCIUM 9.4 mg/dL (8.5-10.1); CARBON DIOXIDE 31.6 mmol/L (21.0-32.0); CREATININE - SERUM 2.6 mg/dL (0.6-1.3); POTASSIUM - SERUM 3.4 mmol/L (3.5-5.1); PROTEIN - SERUM 8.9 g/dL (6.4-8.2)
[2019-08-20 06:48] LABS: BASOPHILS 0.1 % (0-2); EOSINOPHILS 0.1 % (0-7); HEMOGLOBIN 12.2 g/dL (13.5-17.5); IMMATURE GRANULOCYTES 0.7 % (0-5); MCH 26.6 pg (26.0-34.0); MCHC 33.9 g/dL (31.0-37.0); MCV 78.6 fL (80.0-100.0); MEAN PLATELET VOLUME 9.8 fL (7.4-10.4); MONOCYTES 6.3 % (2-11); NEUTROPHILS 87.8 % (40-80); PLATELET COUNT 245 10x3/uL (130-400); RBC 4.58 10x6/uL (4.20-6.10); RDW 16.5 % (11.5-14.5); WBC 16.2 10x3/uL (4.8-10.8)
[2019-08-20 12:02] LABS: BILIRUBIN NEGATIVE (NEGATIVE); GLUCOSE NEGATIVE (NEGATIVE); KETONE NEGATIVE (NEGATIVE); NITRITE NEGATIVE (NEGATIVE); UROBILINOGEN NORMAL (NORMAL)
[2019-08-20 12:03] LABS: BACTERIA FEW /hpf (NEGATIVE); EPITHELIAL CELLS 0-5 /hpf (0-5); RED CELLS - URINE OCC /hpf (0-5); WHITE CELLS - URINE 0-5 /hpf (NEGATIVE)
[2019-08-21] VITALS (21 sets, daily range): BP systolic 91–141; BP diastolic 53–92
[2019-08-21 09:42] LABS: BASOPHILS 0.1 % (0-2); EOSINOPHILS 0.1 % (0-7); HEMATOCRIT 35.7 % (42.0-54.0); HEMOGLOBIN 11.9 g/dL (13.5-17.5); IMMATURE GRANULOCYTES 0.6 % (0-5); LYMPHOCYTES 4.4 % (15-50); MCH 26.4 pg (26.0-34.0); MCHC 33.3 g/dL (31.0-37.0); MCV 79.2 fL (80.0-100.0); MEAN PLATELET VOLUME 9.3 fL (7.4-10.4); MONOCYTES 7.2 % (2-11); NEUTROPHILS 87.6 % (40-80); PLATELET COUNT 242 10x3/uL (130-400); RBC 4.51 10x6/uL (4.20-6.10); RDW 16.4 % (11.5-14.5); WBC 16.7 10x3/uL (4.8-10.8)
[2019-08-21 10:02] LABS: ANION GAP 11.3 mmol/L (8-16); CARBON DIOXIDE 34.4 mmol/L (21.0-32.0); CREATININE - SERUM 2.3 mg/dL (0.6-1.3); POTASSIUM - SERUM 3.7 mmol/L (3.5-5.1)
[2019-08-22] VITALS (24 sets, daily range): BP systolic 95–163; BP diastolic 68–92
[2019-08-22 05:07] LABS: CALCIUM 9.1 mg/dL (8.5-10.1); CARBON DIOXIDE 34.5 mmol/L (21.0-32.0); CREATININE - SERUM 2.3 mg/dL (0.6-1.3); POTASSIUM - SERUM 3.5 mmol/L (3.5-5.1); VANCOMYCIN - RANDOM 12.3 ug/mL (10.0-20.0)
[2019-08-22 05:23] LABS: HEMATOCRIT 34.2 % (42.0-54.0); HEMOGLOBIN 11.6 g/dL (13.5-17.5); MCH 26.7 pg (26.0-34.0); MCHC 33.9 g/dL (31.0-37.0); MCV 78.6 fL (80.0-100.0); MEAN PLATELET VOLUME 9.8 fL (7.4-10.4); PLATELET COUNT 280 10x3/uL (130-400); RBC 4.35 10x6/uL (4.20-6.10); RDW 16.5 % (11.5-14.5); WBC 21.5 10x3/uL (4.8-10.8)
[2019-08-22 05:24] LABS: EOSINOPHILS 2 % (0-7); LYMPHOCYTES 9 % (15-50); MONOCYTES 6 % (2-11); NEUTROPHILS 83 % (40-80); PLATELET ESTIMATE NORMAL
[2019-08-22 06:50] LABS: ALBUMIN 2.2 g/dL (3.4-5.0)
[2019-08-22 15:58] LABS: BILIRUBIN NEGATIVE (NEGATIVE); GLUCOSE NEGATIVE (NEGATIVE); KETONE NEGATIVE (NEGATIVE); NITRITE NEGATIVE (NEGATIVE); UROBILINOGEN NORMAL (NORMAL)
[2019-08-23] VITALS (24 sets, daily range): BP systolic 84–151; BP diastolic 55–103
[2019-08-23 04:33] LABS: BASOPHILS 0.1 % (0-2); EOSINOPHILS 0.2 % (0-7); HEMATOCRIT 33.1 % (42.0-54.0); HEMOGLOBIN 11.7 g/dL (13.5-17.5); IMMATURE GRANULOCYTES 0.9 % (0-5); LYMPHOCYTES 5.3 % (15-50); MCH 27.4 pg (26.0-34.0); MCHC 35.3 g/dL (31.0-37.0); MCV 77.5 fL (80.0-100.0); MEAN PLATELET VOLUME 9.3 fL (7.4-10.4); MONOCYTES 6.5 % (2-11); PLATELET COUNT 275 10x3/uL (130-400); RBC 4.27 10x6/uL (4.20-6.10); RDW 16.5 % (11.5-14.5); WBC 25.7 10x3/uL (4.8-10.8)
[2019-08-23 04:58] LABS: ANION GAP 10.1 mmol/L (8-16); CALCIUM 9.5 mg/dL (8.5-10.1); CARBON DIOXIDE 34.1 mmol/L (21.0-32.0); CREATININE - SERUM 2.4 mg/dL (0.6-1.3); POTASSIUM - SERUM 3.2 mmol/L (3.5-5.1); VANCOMYCIN - RANDOM 20.1 ug/mL (10.0-20.0)
[2019-08-24] VITALS (8 sets, daily range): BP systolic 98–127; BP diastolic 74–98
[2019-08-24 04:45] LABS: CALCIUM 9.2 mg/dL (8.5-10.1); CARBON DIOXIDE 35.3 mmol/L (21.0-32.0); CREATININE - SERUM 2.5 mg/dL (0.6-1.3); POTASSIUM - SERUM 3.3 mmol/L (3.5-5.1)
[2019-08-24 04:46] LABS: HEMATOCRIT 33.7 % (42.0-54.0); HEMOGLOBIN 11.7 g/dL (13.5-17.5); MCH 26.9 pg (26.0-34.0); MCHC 34.7 g/dL (31.0-37.0); MCV 77.5 fL (80.0-100.0); MEAN PLATELET VOLUME 9.6 fL (7.4-10.4); PLATELET COUNT 290 10x3/uL (130-400); RBC 4.35 10x6/uL (4.20-6.10); RDW 16.4 % (11.5-14.5); WBC 20.7 10x3/uL (4.8-10.8)
[2019-08-24 07:20] LABS: EOSINOPHILS 1 % (0-7); LYMPHOCYTES 11 % (15-50); MONOCYTES 4 % (2-11); NEUTROPHILS 82 % (40-80); PLATELET ESTIMATE NORMAL
[2019-08-25] VITALS: BP 108/70
[2019-08-25 04:00] VITALS: BP 96/77
[2019-08-25 06:05] LABS: BASOPHILS 0.1 % (0-2); EOSINOPHILS 0.5 % (0-7); HEMATOCRIT 34.2 % (42.0-54.0); HEMOGLOBIN 11.5 g/dL (13.5-17.5); IMMATURE GRANULOCYTES 0.9 % (0-5); LYMPHOCYTES 5.2 % (15-50); MCH 26.7 pg (26.0-34.0); MCHC 33.6 g/dL (31.0-37.0); MEAN PLATELET VOLUME 10.4 fL (7.4-10.4); MONOCYTES 8.4 % (2-11); NEUTROPHILS 84.9 % (40-80); PLATELET COUNT 327 10x3/uL (130-400); RDW 18.2 % (11.5-14.5)
[2019-08-25 06:22] LABS: MCV 79.5 fL (80.0-100.0)
[2019-08-25 06:24] LABS: ALBUMIN 2.1 g/dL (3.4-5.0); ANION GAP 10.6 mmol/L (8-16); BILIRUBIN - DIRECT 2.5 mg/dL (0.00-0.30); BILIRUBIN - INDIRECT 0.76 mg/dL (0.00-1.00); BILIRUBIN - TOTAL 3.26 mg/dL (0.2-1.3); CALCIUM 9.1 mg/dL (8.5-10.1); CARBON DIOXIDE 34.3 mmol/L (21.0-32.0); CREATININE - SERUM 2.8 mg/dL (0.6-1.3); PROTEIN - SERUM 8.4 g/dL (6.4-8.2); VANCOMYCIN - RANDOM 22.1 ug/mL (10.0-20.0)
[2019-08-25 06:26] LABS: POTASSIUM - SERUM 2.9 mmol/L (3.5-5.1)
[2019-08-25 09:00] VITALS: BP 119/73
[2019-08-25 12:00] VITALS: BP 94/60
[2019-08-25 20:00] VITALS: BP 110/79
[2019-08-26] VITALS: BP 112/75
[2019-08-26 04:00] VITALS: BP 109/81
[2019-08-26 06:09] LABS: BASOPHILS 0.2 % (0-2); EOSINOPHILS 0.5 % (0-7); HEMATOCRIT 35.8 % (42.0-54.0); HEMOGLOBIN 11.7 g/dL (13.5-17.5); IMMATURE GRANULOCYTES 0.7 % (0-5); LYMPHOCYTES 7.1 % (15-50); MCH 26.7 pg (26.0-34.0); MCHC 32.7 g/dL (31.0-37.0); MEAN PLATELET VOLUME 10.5 fL (7.4-10.4); MONOCYTES 12.6 % (2-11); NEUTROPHILS 78.9 % (40-80); PLATELET COUNT 320 10x3/uL (130-400); RBC 4.39 10x6/uL (4.20-6.10); RDW 18.4 % (11.5-14.5); WBC 12.9 10x3/uL (4.8-10.8)
[2019-08-26 06:12] LABS: MCV 81.5 fL (80.0-100.0)
[2019-08-26 06:53] LABS: ANION GAP 12.6 mmol/L (8-16); CALCIUM 8.8 mg/dL (8.5-10.1); CARBON DIOXIDE 32.9 mmol/L (21.0-32.0); CREATININE - SERUM 2.9 mg/dL (0.6-1.3)
[2019-08-26 07:05] LABS: POTASSIUM - SERUM 3.5 mmol/L (3.5-5.1)
[2019-08-26 09:00] VITALS: BP 114/85
[2019-08-26 12:00] VITALS: BP 131/78
--- NOTE | 2019-08-26 13:07 | MORECARE ---
CASE MANAGEMENT DISCHARGE SUMMARY PATIENT: MADHURI BATEMAN UNIT: [id number] ADM DATE: 08/15/19 AGE: 49 : 66 SEX: M ROOM/BED: D.8251 AUTHOR: ALPHONSO FISHER PHYSICIAN: REFERRING PHYSICIAN: NOAH PARRA MD DATE OF SERVICE: 08/26/19 Discharge Plan Patient Name: MADHURI BATEMAN Facility: [facility]:[place] : 1970 Planned Disposition: Anticipated Discharge Date: Discharge Date: Expected LOS: Initial Reviewer: [id number] Initial Review Date: 08/17/2019 Generated: 08/26/19 2:07 pm DCP- Discharge Planning Updated by [email or web address]: Muriel Benz on 08/17/19 2:[address] Patient Name: MADHURI BATEMAN Admission Status: ER Accout number: [id number] Admission Date: 08-15-2019 : 1970 Admission Diagnosis: Attending: NOAH PARRA Current LOS: 2 Anticipated DC Date: Planned Disposition: Primary Insurance: MEDICAID [place] Discharge Planning Comments: CM MET WITH PATIENT AFTER OBTAINING VERBAL CONSENT. PATIENT STATES MAY NEED HOME HEALTH AND OXYGEN AT TIME OF DC. [facility] SIGNED FOR ANY HH AND ANY DME. MAY NEED WALK TEST PRIOR TO DC. NO OTHER NEEDS IDENTIFIED. CM TO FOLLOW AND ASSIST NEEDED. Geophysical Computer: Muriel Benz DCPIA - Discharge Planning Initial Assessment Updated by [id number]: Muriel Benz on 08/17/19 3:28 pm * Is the patient Alert and Oriented? Yes * PCP DANIKA * Pharmacy [facility] * Preadmission Environment Home with Family * ADLs Independent * Additional services required to return to the preadmission environment? Yes * Can the patient safely return to the preadmission environment? Yes * Has this patient been hospitalized within the prior 30 days at any hospital? No External Providers External Provider: [facility] Next Contact Date: Service Request Date: Service Type: Resolution: Reviewer: Comments: Coverage Notice Reviewer: [email or web address] Vince Benz Notice Issued Date-Time: 08/17/2019 15:25 Notice Type: Patient Choice Letter Notice Delivered To: Patient Relationship to Patient: Platen Press Feeder Name: Delivery Method: HAND - Hand Delivered Evelina Days: Prior Verbal Notification: Recipient Understood Notice: Yes Recipient Signature: Yes Med Rec Note Co-signed by Attending: Coverage Notice Comment: ANY HH, ANY DME COMPANY Last DP export: 08/18/19 3:20 p Patient Name: MADHURI BATEMAN Page [phone] at 1307 All edits/amendments must be made on the electronic document DICTATION DATE: 08/26/19 1307 UNDERGROUND SUPERVISOR: RYLIE 08/26/19 1307 RPT#: [id number] DC DATE: STATUS: ADM IN [facility] [address] [place] [address] END OF REPORT
[2019-08-26 15:11] LABS: AEROBE ID Final report (())
[2019-08-26 16:00] VITALS: BP 123/83
[2019-08-26 20:00] VITALS: BP 108/60
[2019-08-27 04:00] VITALS: BP 90/64
[2019-08-27 05:18] LABS: BASOPHILS 0.2 % (0-2); EOSINOPHILS 0.6 % (0-7); HEMATOCRIT 33.9 % (42.0-54.0); HEMOGLOBIN 11.1 g/dL (13.5-17.5); IMMATURE GRANULOCYTES 0.6 % (0-5); LYMPHOCYTES 8.5 % (15-50); MCH 26.2 pg (26.0-34.0); MCHC 32.7 g/dL (31.0-37.0); MCV 80.1 fL (80.0-100.0); MONOCYTES 9.7 % (2-11); NEUTROPHILS 80.4 % (40-80); PLATELET COUNT 340 10x3/uL (130-400); RBC 4.23 10x6/uL (4.20-6.10); RDW 18.4 % (11.5-14.5); WBC 12.4 10x3/uL (4.8-10.8)
[2019-08-27 05:38] LABS: ANION GAP 12.8 mmol/L (8-16); CALCIUM 9.1 mg/dL (8.5-10.1); CARBON DIOXIDE 29.2 mmol/L (21.0-32.0); CREATININE - SERUM 2.7 mg/dL (0.6-1.3); VANCOMYCIN - RANDOM 19.3 ug/mL (10.0-20.0)
--- NOTE | 2019-08-27 09:46 | MORECARE ---
CASE MANAGEMENT DISCHARGE SUMMARY PATIENT: MADHURI BATEMAN UNIT: [id number] ADM DATE: 08/15/19 AGE: 49 : 66 SEX: M ROOM/BED: D.5179 AUTHOR: NATALIA,DOC PHYSICIAN: REFERRING PHYSICIAN: NOAH PARRA MD DATE OF SERVICE: 08/27/19 Discharge Plan Patient Name: MADHURI BATEMAN Facility: [facility]:[place] : 1970 Planned Disposition: Anticipated Discharge Date: Discharge Date: Expected LOS: Initial Reviewer: [id number] Initial Review Date: 08/17/2019 Generated: 08/27/19 10:45 am Comments DCP- Discharge Planning Updated by [id number]: Tata Velazco on 08/27/19 8:[address] [facility] FOR [facility], TO THE BEDSIDE THIS AM. SHE STATED SHE HAD SPOKEN WITH THE PATIENT AND TOLD HIM HE COULD NOT GO HOME. SHE STATES SHE FIRMLY ADVISED HIM TO PLAN ON REHAB SERVICES. SHE EXPLAINED HE IS TOO WEAK TO MANAGE AT HOME EVEN WITH [facility], SHE STATED THE PATIENT NEEDS AN ICD AND WILL NEED TO BE STRONGER. CM TO THE BEDSIDE TO SPEAK WITH THE PATIENT. THE VOLUNTEER HAD JUST ESCORTED VISITORS TO HIS ROOM. WILL REVISIT. DCP- Discharge Planning Updated by [email or web address]: Muriel Benz on 08/17/19 2:[address] Patient Name: MADHURI BATEMAN Admission Status: ER Accout number: [id number] Admission Date: 08-15-2019 : 1970 Admission Diagnosis: Attending: NOAH PARRA Current LOS: 2 Anticipated DC Date: Planned Disposition: Primary Insurance: MEDICAID [place] Discharge Planning Comments: CM MET WITH PATIENT AFTER OBTAINING VERBAL CONSENT. PATIENT STATES MAY NEED HOME HEALTH AND OXYGEN AT TIME OF DC. [facility] SIGNED FOR ANY HH AND ANY DME. MAY NEED WALK TEST PRIOR TO DC. NO OTHER NEEDS IDENTIFIED. CM TO FOLLOW AND ASSIST NEEDED. Vegetable Specker: Muriel Benz DCPIA - Discharge Planning Initial Assessment Updated by [id number]: Muriel Benz on 08/17/19 3:28 pm * Is the patient Alert and Oriented? Yes * PCP DANIKA * [facility] * Preadmission Environment Home with Family * ADLs Independent * Additional services required to return to the preadmission environment? Yes * Can the patient safely return to the preadmission environment? Yes * Has this patient been hospitalized within the prior 30 days at any hospital? No Coverage Notice Reviewer: [id number] Vince Benz Notice Issued Date-Time: 08/17/2019 15:25 Notice Type: Patient Choice Letter Notice Delivered To: Patient Relationship to Patient: Casino Host Name: Delivery Method: HAND - Hand Delivered Evelina Days: Prior Verbal Notification: Recipient Understood Notice: Yes Recipient Signature: Yes Med Rec Note Co-signed by Attending: Coverage Notice Comment: ANY HH, ANY DME COMPANY Last DP export: 08/26/19 12:07 p Patient Name: MDAHURI BATEMAN Page [phone] at 0946 All edits/amendments must be made on the electronic document DICTATION DATE: 08/27/19944 BIOMETRICS INSTRUCTOR: RYLIE 08/27/19944 RPT#: [id number] DC DATE: STATUS: ADM IN [facility] [address] [place] [address] END OF REPORT
--- NOTE | 2019-08-27 11:17 | MORECARE ---
CASE MANAGEMENT DISCHARGE SUMMARY PATIENT: MADHURI BATEMAN UNIT: [id number] ADM DATE: 08/15/19 AGE: 49 : 66 SEX: M ROOM/BED: D.3386 AUTHOR: NATALIADOC PHYSICIAN: REFERRING PHYSICIAN: NOAH PARRA MD DATE OF SERVICE: 08/27/19 Discharge Plan Patient Name: MADHURI BATEMAN Facility: [facility]:[place] : 1970 Planned Disposition: Anticipated Discharge Date: Discharge Date: Expected LOS: Initial Reviewer: [id number] Initial Review Date: 08/17/2019 Generated: 08/27/19 12:17 pm Comments DCP- Discharge Planning Updated by [email or web address]: Tata Velazco on 08/27/19 10:[address] CM TO THE BEDSIDE TO SPEAK WITH THE PATIENT. EXPLAINED I HAD REVIEWED HIS CHART AND SPOKEN W/ [facility] ON HER ROUNDS. THE PATIENT DOES NOT WANT REHAB , HE HAS MEDICAID AND SKILLED REHAB WOULD BE HIS ONLY OPTION. HE FEELS NO ONE IS LISTENING TO HIM OR RESPECTING HIS CHOICES. HE WANTS CM TO KNOW HE IS NOT HOMELESS. HE [facility] HE HAS A VISITOR , LAURA CHRISTIANSON, WHO CAME WHILE THE CM WAS VISITING. HE GAVE PERMISSION TO DISCUSS DISCHARGE W/ HER. MS CHRISTIANSON STATES HE CAN STAY WITH HER AND SHE WILL PROVIDE CARE. SHE STATES SHE HAS KNOWN HIM FOR A NUMBER OF YEARS. SHE STATES SHE OWNS A HOME WHICH IS HANDICAP ACCESSIBLE. SHE HAS PROVIDED CARE FOR OTHERS AND FEELS SHE CAN TAKE CARE OF HIM WITH INSTRUCTION AND TRAINING. WOULD BE GRATEFUL FOR ANY HOME HEALTH AND STATES SHE WOULD FOLLOW MEDICAL PLAN. THE PATIENT IS IN AGREEMENT W/ HER OFFER. HE HAS HAD 2 OTHER PERSONS WILLING TO HELP BUT MS CHRISTIANSON HAS HAD SOME TRAINING. SHE EXPRESSED CONCERN REGARDING HIS LOWER EXTREMITIES AND FEET. CM WILL NOTIFY WOUND CARE NURSE SHE SAW THE PATIENT EARLIER IN PATIENT'S STAY. PATIENT STATES HE HAS DIFFICULTY W/ AMBULATION SOMETIMES BECAAUSE OF HIS FEET. PATIENT AND MS CHRISTIANSON TO DISCUSS HOME OPTION. CM TO FOLLOW, DCP- Discharge Planning Updated by [id number]: Tata Velazco on 08/27/19 8:[address] [facility] FOR [facility], TO THE BEDSIDE THIS AM. SHE STATED SHE HAD SPOKEN WITH THE PATIENT AND TOLD HIM HE COULD NOT GO HOME. SHE STATES SHE FIRMLY ADVISED HIM TO PLAN ON REHAB SERVICES. SHE EXPLAINED HE IS TOO WEAK TO MANAGE AT HOME EVEN WITH [facility], SHE STATED THE PATIENT NEEDS AN ICD AND WILL NEED TO BE STRONGER. CM TO THE BEDSIDE TO SPEAK WITH THE PATIENT. THE VOLUNTEER HAD JUST ESCORTED VISITORS TO HIS ROOM. WILL REVISIT. DCP- Discharge Planning Updated by [id number]: Muriel Benz on 08/17/19 2:[address] Patient Name: MADHURI BATEMAN Admission Status: ER Accout number: [id number] Admission Date: 08-15-2019 : 1970 Admission Diagnosis: Attending: NOAH PARRA Current LOS: 2 Anticipated DC Date: Planned Disposition: Primary Insurance: MEDICAID [place] Discharge Planning Comments: CM MET WITH PATIENT AFTER OBTAINING VERBAL CONSENT. PATIENT STATES MAY NEED HOME HEALTH AND OXYGEN AT TIME OF DC. [facility] SIGNED FOR ANY HH AND ANY DME. MAY NEED WALK TEST PRIOR TO DC. NO OTHER NEEDS IDENTIFIED. CM TO FOLLOW AND ASSIST NEEDED. Taker Off Braker Machine: Muriel Benz DCPIA - Discharge Planning Initial Assessment Updated by [email or web address]: Muriel Benz on 08/17/19 3:28 pm * Is the patient Alert and Oriented? Yes * PCP DANIKA * Pharmacy [facility] * Preadmission Environment Home with Family * ADLs Independent * Additional services required to return to the preadmission environment? Yes * Can the patient safely return to the preadmission environment? Yes * Has this patient been hospitalized within the prior 30 days at any hospital? No Coverage Notice Reviewer: [id number] - Muriel Benz Notice Issued Date-Time: 08/17/2019 15:25 Notice Type: Patient Choice Letter Notice Delivered To: Patient Relationship to Patient: Post Framer Name: Delivery Method: HAND - Hand Delivered Evelina Days: Prior Verbal Notification: Recipient Understood Notice: Yes Recipient Signature: Yes Med Rec Note Co-signed by Attending: Coverage Notice Comment: ANY HH, ANY DME COMPANY Last DP export: 08/27/19 8:46 a Patient Name: MADHURI BATEMAN Page 77028 at 1117 All edits/amendments must be made on the electronic document DICTATION DATE: 08/27/191116 ADHESIVE BANDAGE MACHINE OPERATOR: RYLIE 08/27/191116 RPT#: [id number] DC DATE: STATUS: ADM IN [facility] [address] [place] [address] END OF REPORT
[2019-08-27 14:35] VITALS: BP 121/90
--- NOTE | 2019-08-27 16:39 | MORECARE ---
CASE MANAGEMENT DISCHARGE SUMMARY PATIENT: MADHURI BATEMAN UNIT: [id number] ADM DATE: 08/15/19 AGE: 49 : 66 SEX: M ROOM/BED: D.0554 AUTHOR: NATALIA,DOC PHYSICIAN: REFERRING PHYSICIAN: NOAH PARRA MD DATE OF SERVICE: 08/27/19 Discharge Plan Patient Name: MADHURI BATEMAN Facility: [facility]:[place] : 1970 Planned Disposition: Anticipated Discharge Date: Discharge Date: Expected LOS: Initial Reviewer: [email or web address] Initial Review Date: 08/17/2019 Generated: 08/27/19 5:39 pm Comments DCP- Discharge Planning Updated by [id number]: Tata Velazco on 08/27/19 3:[address] LATE ENTRY 1145 CM SPOKE WITH THE WOUND CARE NURSE, PERSONALLY, REQUESTING UPDATED ASSESSMENT OF PATIENT'S LOWER EXTREMITIES. INITIAL WOUND ASSESSMENT 08/17/2019. PATIENT'S VISITOR COMMENTING ON CONDITION OF LEGS AND FEET. DCP- Discharge Planning Updated by [email or web address]: Tata Velazco on 08/27/19 10:[address] CM TO THE BEDSIDE TO SPEAK WITH THE PATIENT. EXPLAINED I HAD REVIEWED HIS CHART AND SPOKEN W/ MS ROJO ON HER ROUNDS. THE PATIENT DOES NOT WANT REHAB , HE HAS MEDICAID AND SKILLED REHAB WOULD BE HIS ONLY OPTION. HE FEELS NO ONE IS LISTENING TO HIM OR RESPECTING HIS CHOICES. HE WANTS TO KNOW HE IS NOT HOMELESS. HE HAS STAYED W/ HIS STEPMOTHER AT THE [facility]. HE HAS A VISITOR , LAURA CHRISTIANSON, WHO CAME WHILE THE CM WAS VISITING. HE GAVE PERMISSION TO DISCUSS DISCHARGE W/ HER. MS CHRISTIANSON STATES HE CAN STAY WITH HER AND SHE WILL PROVIDE CARE. SHE STATES SHE HAS KNOWN HIM FOR A NUMBER OF YEARS. SHE STATES SHE OWNS A HOME WHICH IS HANDICAP ACCESSIBLE. SHE HAS PROVIDED CARE FOR OTHERS AND FEELS SHE CAN TAKE CARE OF HIM WITH INSTRUCTION AND TRAINING. WOULD BE GRATEFUL FOR ANY HOME HEALTH AND STATES SHE WOULD FOLLOW MEDICAL PLAN. THE PATIENT IS IN AGREEMENT W/ HER OFFER. HE HAS HAD 2 OTHER PERSONS WILLING TO HELP BUT MS CHRISTIANSON HAS HAD SOME TRAINING. SHE EXPRESSED CONCERN REGARDING HIS LOWER EXTREMITIES AND FEET. CM WILL NOTIFY WOUND CARE NURSE SHE SAW THE PATIENT EARLIER IN PATIENT'S STAY. PATIENT STATES HE HAS DIFFICULTY W/ AMBULATION SOMETIMES BECAAUSE OF HIS FEET. PATIENT AND MS CHRISTIANSON TO DISCUSS HOME OPTION. CM TO FOLLOW, DCP- Discharge Planning Updated by [id number]: Tatatramaine Velazco on 08/27/19 8:[address] [facility], TO THE BEDSIDE THIS AM. SHE STATED SHE HAD SPOKEN WITH THE PATIENT AND TOLD HIM HE COULD NOT GO HOME. SHE STATES SHE FIRMLY ADVISED HIM TO PLAN ON REHAB SERVICES. SHE EXPLAINED HE IS TOO WEAK TO MANAGE AT HOME EVEN WITH [facility], SHE STATED THE PATIENT NEEDS AN ICD AND WILL NEED TO BE STRONGER. CM TO THE BEDSIDE TO SPEAK WITH THE PATIENT. THE VOLUNTEER HAD JUST ESCORTED VISITORS TO HIS ROOM. WILL REVISIT. DCP- Discharge Planning Updated by [id number]: Muriel Benz on 08/17/19 2:[address] Patient Name: MADHURI BATEMAN Admission Status: ER Accout number: [id number] Admission Date: 08-15-2019 : 1970 Admission Diagnosis: Attending: NOAH PARRA Current LOS: 2 Anticipated DC Date: Planned Disposition: Primary Insurance: MEDICAID [place] Discharge Planning Comments: CM MET WITH PATIENT AFTER OBTAINING VERBAL CONSENT. PATIENT STATES MAY NEED HOME HEALTH AND OXYGEN AT TIME OF DC. [facility] SIGNED FOR ANY HH AND ANY DME. MAY NEED WALK TEST PRIOR TO DC. NO OTHER NEEDS IDENTIFIED. CM TO FOLLOW AND ASSIST NEEDED. Multimedia Services Coordinator: Muriel Benz DCPIA - Discharge Planning Initial Assessment Updated by [email or web address]: Muriel Benz on 08/17/19 3:28 pm * Is the patient Alert and Oriented? Yes * PCP DANIKA * Pharmacy [facility] * Preadmission Environment Home with Family * ADLs Independent * Additional services required to return to the preadmission environment? Yes * Can the patient safely return to the preadmission environment? Yes * Has this patient been hospitalized within the prior 30 days at any hospital? No Coverage Notice Reviewer: [id number] - Muriel Benz Notice Issued Date-Time: 08/17/2019 15:25 Notice Type: Patient Choice Letter Notice Delivered To: Patient Relationship to Patient: Skidway Worker Name: Delivery Method: HAND - Hand Delivered Evelina Days: Prior Verbal Notification: Recipient Understood Notice: Yes Recipient Signature: Yes Med Rec Note Co-signed by Attending: Coverage Notice Comment: ANY HH, ANY DME COMPANY Last DP export: 08/27/19 10:17 a Patient Name: MADHURI BATEMAN Page [phone] at 1639 All edits/amendments must be made on the electronic document DICTATION DATE: 08/27/191638 PEDIATRIC DENTIST: RYLIE 08/27/199 RPT#: [id number] DC DATE: STATUS: ADM IN [facility] [address] [place] [address] END OF REPORT
[2019-08-27 18:10] VITALS: BP 116/85
[2019-08-27 20:00] VITALS: BP 114/82
[2019-08-28 02:46] VITALS: BP 112/80
[2019-08-28 04:00] VITALS: BP 111/81
[2019-08-28 06:39] LABS: BASOPHILS 0.2 % (0-2); EOSINOPHILS 0.3 % (0-7); HEMOGLOBIN 11.2 g/dL (13.5-17.5); IMMATURE GRANULOCYTES 0.6 % (0-5); LYMPHOCYTES 9.2 % (15-50); MCH 26.7 pg (26.0-34.0); MCHC 32.9 g/dL (31.0-37.0); MEAN PLATELET VOLUME 10.1 fL (7.4-10.4); NEUTROPHILS 78.7 % (40-80); PLATELET COUNT 338 10x3/uL (130-400); RDW 18.1 % (11.5-14.5); WBC 10.2 10x3/uL (4.8-10.8)
[2019-08-28 07:26] LABS: CALCIUM 9.4 mg/dL (8.5-10.1); CARBON DIOXIDE 28.3 mmol/L (21.0-32.0); CREATININE - SERUM 2.4 mg/dL (0.6-1.3); POTASSIUM - SERUM 3.3 mmol/L (3.5-5.1)
[2019-08-28 10:06] VITALS: BP 100/69
[2019-08-28 14:01] VITALS: BP 123/91
[2019-08-28 18:09] VITALS: BP 118/82
--- NOTE | 2019-08-28 19:22 | OP ---
PATIENT NAME: MADHURI BATEMAN MEDICAL RECORD: [id number] :[birth year] LOCATION:D. D.9 ADMISSION DATE:08/15/19 SURGEON: CLYDE TREVINO MD DATE OF OPERATION: 08/17/2019 PREOPERATIVE DIAGNOSIS: Acute renal failure requiring hemodialysis access. POSTOPERATIVE DIAGNOSIS: Acute renal failure requiring hemodialysis access. PROCEDURE: Insertion of right internal jugular Trialysis catheter placement (non-tunneled, non-cuffed triple lumen hemodialysis catheter). SURGEON: Clyde Trevino MD REQUIREMENTS ENGINEER: None. BLOOD LOSS: Minimal. ANESTHESIA: Local. COMPLICATIONS: None. The risks, possible complications, and alternatives to the procedure were explained to the patient. He elects to proceed. The patient has indwelling central venous line which I placed. My plan is to change this central line out to a Trialysis catheter over a wire. OPERATIVE COURSE: The patient was seen in his ICU room. He was in a beach chair position. The right neck and central venous line were sterilely prepped and draped. A local anesthetic was used to infiltrate the skin and subcutaneous tissues around the central venous line insertion. Sutures from the central venous line to the skin were cut. I advanced an 0.035 guidewire down through the distal lumen. The central venous line was then removed. Over the guidewire, I dilated to a larger size. A short Trialysis catheter was then advanced over the wire. The wire was removed. The Trialysis catheter was then sutured in place times 2. All lumens flushed easily and aspirated dark, nonpulsatile blood. Both lumens were then flushed with heparinized saline. A sterile dressing was then applied. TRANSINT:[id number] Voice Confirmation ID: [id number] DOCUMENT ID: [id number] CLYDE TREVINO MD at 1922 CC: [id number] DICTATION DATE: 08/28/19 1451 ROLL DOUGH DIVIDER: 08/28/19 1915 ADM IN [facility] [address] [place] [address]
[2019-08-28 20:00] VITALS: BP 117/85
[2019-08-29] VITALS: BP 123/77; BP 133/57
[2019-08-29 04:00] VITALS: BP 127/88
[2019-08-29 06:15] LABS: BASOPHILS 0.4 % (0-2); EOSINOPHILS 0.3 % (0-7); HEMATOCRIT 34.8 % (42.0-54.0); HEMOGLOBIN 11.2 g/dL (13.5-17.5); IMMATURE GRANULOCYTES 0.5 % (0-5); LYMPHOCYTES 11.9 % (15-50); MCH 26.4 pg (26.0-34.0); MCHC 32.2 g/dL (31.0-37.0); MCV 82.1 fL (80.0-100.0); MEAN PLATELET VOLUME 10.4 fL (7.4-10.4); MONOCYTES 11.4 % (2-11); NEUTROPHILS 75.5 % (40-80); PLATELET COUNT 404 10x3/uL (130-400); RBC 4.24 10x6/uL (4.20-6.10); RDW 18.4 % (11.5-14.5); WBC 10.7 10x3/uL (4.8-10.8)
[2019-08-29 06:25] LABS: ANION GAP 14.6 mmol/L (8-16); CARBON DIOXIDE 28.7 mmol/L (21.0-32.0); CREATININE - SERUM 2.6 mg/dL (0.6-1.3); POTASSIUM - SERUM 3.3 mmol/L (3.5-5.1)
[2019-08-29 10:17] VITALS: BP 142/85
[2019-08-29 13:16] VITALS: BP 122/80
[2019-08-29 16:37] VITALS: BP 125/73
[2019-08-29 20:00] VITALS: BP 111/82
[2019-08-30] VITALS: BP 115/67
[2019-08-30 04:00] VITALS: BP 104/72
[2019-08-30 06:19] LABS: ANION GAP 14.9 mmol/L (8-16); CARBON DIOXIDE 27.1 mmol/L (21.0-32.0); CREATININE - SERUM 2.5 mg/dL (0.6-1.3)
[2019-08-30 06:22] LABS: BASOPHILS 0.5 % (0-2); EOSINOPHILS 0.5 % (0-7); HEMATOCRIT 37.1 % (42.0-54.0); HEMOGLOBIN 12.1 g/dL (13.5-17.5); IMMATURE GRANULOCYTES 0.3 % (0-5); LYMPHOCYTES 15.7 % (15-50); MCH 26.9 pg (26.0-34.0); MCHC 32.6 g/dL (31.0-37.0); MCV 82.4 fL (80.0-100.0); MEAN PLATELET VOLUME 10.2 fL (7.4-10.4); MONOCYTES 9.6 % (2-11); NEUTROPHILS 73.4 % (40-80); PLATELET COUNT 388 10x3/uL (130-400); RDW 18.9 % (11.5-14.5); WBC 9.6 10x3/uL (4.8-10.8)
[2019-08-30 10:56] VITALS: BP 100/61
[2019-08-30 14:31] VITALS: BP 116/77
[2019-08-30 18:37] VITALS: BP 109/79
[2019-08-30 20:00] VITALS: BP 129/72
[2019-08-31] VITALS: BP 110/78
[2019-08-31 04:00] VITALS: BP 132/84
[2019-08-31 05:53] LABS: BASOPHILS 0.5 % (0-2); EOSINOPHILS 0.4 % (0-7); HEMATOCRIT 35.8 % (42.0-54.0); HEMOGLOBIN 11.7 g/dL (13.5-17.5); IMMATURE GRANULOCYTES 0.3 % (0-5); LYMPHOCYTES 13.1 % (15-50); MCH 26.7 pg (26.0-34.0); MCHC 32.7 g/dL (31.0-37.0); MCV 81.7 fL (80.0-100.0); MEAN PLATELET VOLUME 10.2 fL (7.4-10.4); MONOCYTES 11.2 % (2-11); NEUTROPHILS 74.5 % (40-80); PLATELET COUNT 441 10x3/uL (130-400); RBC 4.38 10x6/uL (4.20-6.10); RDW 18.7 % (11.5-14.5)
[2019-08-31 06:24] LABS: ANION GAP 13.9 mmol/L (8-16); CALCIUM 9.2 mg/dL (8.5-10.1); CARBON DIOXIDE 26.2 mmol/L (21.0-32.0); CREATININE - SERUM 2.2 mg/dL (0.6-1.3); MAGNESIUM - SERUM 2.1 mg/dL (1.8-2.4); POTASSIUM - SERUM 4.1 mmol/L (3.5-5.1)
[2019-08-31 08:43] VITALS: BP 116/63
[2019-08-31 12:16] VITALS: BP 122/69
[2019-08-31 15:47] VITALS: BP 132/87
[2019-08-31 20:34] VITALS: BP 130/101
[2019-09-01 00:31] VITALS: BP 141/104
[2019-09-01 05:19] VITALS: BP 121/65
[2019-09-01 10:10] VITALS: BP 119/85
[2019-09-01 14:21] VITALS: BP 117/82
[2019-09-01 15:42] LABS: BASOPHILS 0.5 % (0-2); EOSINOPHILS 0.8 % (0-7); HEMATOCRIT 37.3 % (42.0-54.0); HEMOGLOBIN 12.3 g/dL (13.5-17.5); IMMATURE GRANULOCYTES 0.3 % (0-5); LYMPHOCYTES 12.4 % (15-50); MEAN PLATELET VOLUME 10.2 fL (7.4-10.4); PLATELET COUNT 487 10x3/uL (130-400); RBC 4.55 10x6/uL (4.20-6.10); RDW 19.1 % (11.5-14.5); WBC 11.9 10x3/uL (4.8-10.8)
[2019-09-01 16:00] VITALS: BP 116/96
[2019-09-01 16:16] LABS: ANION GAP 14.1 mmol/L (8-16); CALCIUM 9.6 mg/dL (8.5-10.1); CARBON DIOXIDE 26.8 mmol/L (21.0-32.0); CREATININE - SERUM 2.1 mg/dL (0.6-1.3); POTASSIUM - SERUM 3.9 mmol/L (3.5-5.1)
--- NOTE | 2019-09-01 17:59 | MORECARE ---
CASE MANAGEMENT DISCHARGE SUMMARY PATIENT: MADHURI BATEMAN UNIT: [id number] ADM DATE: 08/15/19 AGE: 49 : 66 SEX: M ROOM/BED: D.7049 AUTHOR: NATALIA,DOC PHYSICIAN: REFERRING PHYSICIAN: NOAH PARRA MD DATE OF SERVICE: 09/01/19 Discharge Plan Patient Name: MADHURI BATEMAN Facility: [facility]:[place] : 1970 Planned Disposition: Home with Home Health Anticipated Discharge Date: Discharge Date: Expected LOS: Initial Reviewer: [id number] Initial Review Date: 08/17/2019 Generated: 09/01/19 6:59 pm Comments DCP- Discharge Planning Updated by [email or web address]: Tata Velazco on 08/27/19 3:[address] LATE ENTRY 1145 CM SPOKE WITH THE WOUND CARE NURSE, PERSONALLY, REQUESTING UPDATED ASSESSMENT OF PATIENT'S LOWER EXTREMITIES. INITIAL WOUND ASSESSMENT 08/17/2019. PATIENT'S VISITOR COMMENTING ON CONDITION OF LEGS AND FEET. DCP- Discharge Planning Updated by [id number]: Tata Velazco on 08/27/19 10:[address] CM TO THE BEDSIDE TO SPEAK WITH THE PATIENT. EXPLAINED I HAD REVIEWED HIS CHART AND SPOKEN W/ MS ROJO ON HER ROUNDS. THE PATIENT DOES NOT WANT REHAB , HE HAS MEDICAID AND SKILLED REHAB WOULD BE HIS ONLY OPTION. HE FEELS NO ONE IS LISTENING TO HIM OR RESPECTING HIS CHOICES. HE WANTS TO KNOW HE IS NOT HOMELESS. HE HAS STAYED W/ HIS STEPMOTHER AT THE [facility]. HE HAS A VISITOR , LAURA CHRISTIANSON, WHO CAME WHILE THE CM WAS VISITING. HE GAVE PERMISSION TO DISCUSS DISCHARGE W/ HER. MS CHRISTIANSON STATES HE CAN STAY WITH HER AND SHE WILL PROVIDE CARE. SHE STATES SHE HAS KNOWN HIM FOR A NUMBER OF YEARS. SHE STATES SHE OWNS A HOME WHICH IS HANDICAP ACCESSIBLE. SHE HAS PROVIDED CARE FOR OTHERS AND FEELS SHE CAN TAKE CARE OF HIM WITH INSTRUCTION AND TRAINING. WOULD BE GRATEFUL FOR ANY HOME HEALTH AND STATES SHE WOULD FOLLOW MEDICAL PLAN. THE PATIENT IS IN AGREEMENT W/ HER OFFER. HE HAS HAD 2 OTHER PERSONS WILLING TO HELP BUT MS CHRISTIANSON HAS HAD SOME TRAINING. SHE EXPRESSED CONCERN REGARDING HIS LOWER EXTREMITIES AND FEET. CM WILL NOTIFY WOUND CARE NURSE SHE SAW THE PATIENT EARLIER IN PATIENT'S STAY. PATIENT STATES HE HAS DIFFICULTY W/ AMBULATION SOMETIMES BECAAUSE OF HIS FEET. PATIENT AND MS CHRISTIANSON TO DISCUSS HOME OPTION. CM TO FOLLOW, DCP- Discharge Planning Updated by [id number]: Tatatramaine Velazco on 08/27/19 8:[address] [facility] FOR CARDIOLOGY, TO THE BEDSIDE THIS AM. SHE STATED SHE HAD SPOKEN WITH THE PATIENT AND TOLD HIM HE COULD NOT GO HOME. SHE STATES SHE FIRMLY ADVISED HIM TO PLAN ON REHAB SERVICES. SHE EXPLAINED HE IS TOO WEAK TO MANAGE AT HOME EVEN WITH [facility], SHE STATED THE PATIENT NEEDS AN ICD AND WILL NEED TO BE STRONGER. CM TO THE BEDSIDE TO SPEAK WITH THE PATIENT. THE VOLUNTEER HAD JUST ESCORTED VISITORS TO HIS ROOM. WILL REVISIT. DCP- Discharge Planning Updated by [email or web address]: Muriel Benz on 08/17/19 2:[address] Patient Name: MADHURI BATEMAN Admission Status: ER Accout number: [id number] Admission Date: 08-15-2019 : 1970 Admission Diagnosis: Attending: NOAH PARRA Current LOS: 2 Anticipated DC Date: Planned Disposition: Primary Insurance: MEDICAID [place] Discharge Planning Comments: CM MET WITH PATIENT AFTER OBTAINING VERBAL CONSENT. PATIENT STATES MAY NEED HOME HEALTH AND OXYGEN AT TIME OF DC. [facility] SIGNED FOR ANY HH AND ANY DME. MAY NEED WALK TEST PRIOR TO DC. NO OTHER NEEDS IDENTIFIED. CM TO FOLLOW AND ASSIST NEEDED. Quality Improvement Analyst: Muriel Benz DCPIA - Discharge Planning Initial Assessment Updated by [email or web address]: Muriel Benz on 08/17/19 3:28 pm * Is the patient Alert and Oriented? Yes * PCP DANIKA * Pharmacy [facility] * Preadmission Environment Home with Family * ADLs Independent * Additional services required to return to the preadmission environment? Yes * Can the patient safely return to the preadmission environment? Yes * Has this patient been hospitalized within the prior 30 days at any hospital? No Coverage Notice Reviewer: [id number] - Muriel Benz Notice Issued Date-Time: 08/17/2019 15:25 Notice Type: Patient Choice Letter Notice Delivered To: Patient Relationship to Patient: Electronic Calibration Technician Name: Delivery Method: HAND - Hand Delivered Evelina Days: Prior Verbal Notification: Recipient Understood Notice: Yes Recipient Signature: Yes Med Rec Note Co-signed by Attending: Coverage Notice Comment: ANY HH, ANY DME COMPANY Last DP export: 08/27/19 3:39 p Patient Name: MADHURI BATEMAN Page [phone] at 1759 All edits/amendments must be made on the electronic document DICTATION DATE: 09/01/191758 COMPONENT ENGINEER: RYLIE 09/01/191758 RPT#: [id number] DC DATE: STATUS: ADM IN [facility] [address] [place] [address] END OF REPORT
[2019-09-01 21:17] VITALS: BP 121/77
[2019-09-02 00:26] VITALS: BP 117/86
[2019-09-02 06:00] VITALS: BP 118/83
[2019-09-02 07:12] LABS: BASOPHILS 0.6 % (0-2); EOSINOPHILS 1.3 % (0-7); HEMATOCRIT 36.5 % (42.0-54.0); IMMATURE GRANULOCYTES 0.2 % (0-5); LYMPHOCYTES 16.3 % (15-50); MCHC 32.9 g/dL (31.0-37.0); MCV 82.2 fL (80.0-100.0); MEAN PLATELET VOLUME 10.3 fL (7.4-10.4); MONOCYTES 7.5 % (2-11); NEUTROPHILS 74.1 % (40-80); PLATELET COUNT 463 10x3/uL (130-400); RBC 4.44 10x6/uL (4.20-6.10); RDW 18.8 % (11.5-14.5); WBC 10.9 10x3/uL (4.8-10.8)
[2019-09-02 07:42] LABS: ANION GAP 15.8 mmol/L (8-16); CALCIUM 9.6 mg/dL (8.5-10.1); CARBON DIOXIDE 24.7 mmol/L (21.0-32.0); CREATININE - SERUM 2.3 mg/dL (0.6-1.3); PHOSPHOROUS 4.9 mg/dL (2.5-4.9); POTASSIUM - SERUM 3.5 mmol/L (3.5-5.1); URIC ACID 9.3 mg/dL (2.6-7.2)
--- NOTE | 2019-09-02 08:47 | MORECARE ---
CASE MANAGEMENT DISCHARGE SUMMARY PATIENT: MADHURI BATEMAN UNIT: [id number] ADM DATE: 08/15/19 AGE: 49 : 66 SEX: M ROOM/BED: D.7591 AUTHOR: NATALIA,DOC PHYSICIAN: REFERRING PHYSICIAN: NOAH PARRA MD DATE OF SERVICE: 09/02/19 Discharge Plan Patient Name: MADHURI BATEMAN Facility: [facility]:[place] : 1970 Planned Disposition: Home with Home Health Anticipated Discharge Date: Discharge Date: Expected LOS: Initial Reviewer: [id number] Initial Review Date: 08/17/2019 Generated: 09/02/19 9:46 am Comments DCP- Discharge Planning Updated by [id number]: Milton Durán on 09/01/19 4:[address] Patient Name: MADHURI BATEMAN Encounter No: [id number] : 1970 Primary Insurance: MEDICAID [place] Anticipated DC Date: Planned Disposition: Home with Home Health External Planned Provider: NO HOME HEALTH PROVIDER PREFERENCE DCP follow-up note: CM MET WITH PT IN ROOM TO DISCUSS DISCHARGE NEEDS AND PLANNING. CM DISCUSSED AVAILABILITY OF [facility] IN [place]. PT REPORTS HE IS NOT GOING TO A NURSING FACILITY. PT REPORTS PLAN TO GO TO HIS FRIENDS HOME, [facility]. PT REPORTS [facility] AND HER FRIEND WILL ASSIST PT AT HOME. PT WILL ACCEPT HOME HEALTH AND HAS PREVIOUSLY SIGNED CHOICE FOR NO HOME HEALTH PREFERENCE. PT REPORTS HE MAY NEED A WALKER TO GO HOME AND REPORTS HE IS WORKING WITH PYSICAL THERAPY HERE TO GET STRONG ENOUGH TO GO HOME. PT PROVIDED PERMISSION TO SPEAK TO [facility] CHRISTIASNON REGARDING DISCHARGE PLANNING, TREATMENT AND NEEDS. CM MET WITH [facility] CHRISTIANSON IN [place]. [facility] REPORTS SHE AND HER FRIEND WILL TAKE PT HOME TO ASSIST WITH HIS CARE. SHE FEELS HE NEEDS HOME HEALTH FOR THERAPY. DISCHARGE ADDRESS IS [address] [place] [address]. [facility]'S NUMBER IS [phone]. [facility] REPORTS PT WILL HAVE 24 HOUR SUPERVISION AND CARE IN THE HOME. SHE HAS SEEN PT WITH THERAPY AND FEELS THEY CAN SAFELY CARE FOR PT AT HOME. PT TO DISCHARGE HOME TO FRIENDS HOME AND WILL ACCEPT HOME HEALTH FOR THERAPY SERVICES. CM TO ARRANGE HOME HEALTH WITH PHYSICIAN AGREEMENT AND ORDERS FOR HOME HEALTH. PT STATES HE NEEDS A FOOT / LEG BRACE THAT WAS MENTIONED BY HE THINKS, THERAPY. Milton Durán, CASE MANAGEMENT DCP- Discharge Planning Updated by [id number]: Tata Velazco on 08/27/19 3:[address] LATE ENTRY 1145 CM SPOKE WITH THE WOUND CARE NURSE, PERSONALLY, REQUESTING UPDATED ASSESSMENT OF PATIENT'S LOWER EXTREMITIES. INITIAL WOUND ASSESSMENT 08/17/2019. PATIENT'S VISITOR COMMENTING ON CONDITION OF LEGS AND FEET. DCP- Discharge Planning Updated by [id number]: Tata Velazco on 08/27/19 10:[address] CM TO THE BEDSIDE TO SPEAK WITH THE PATIENT. EXPLAINED I HAD REVIEWED HIS CHART AND SPOKEN W/ MS ROJO ON HER ROUNDS. THE PATIENT DOES NOT WANT REHAB , HE HAS MEDICAID AND SKILLED REHAB WOULD BE HIS ONLY OPTION. HE FEELS NO ONE IS LISTENING TO HIM OR RESPECTING HIS CHOICES. HE WANTS CM TO KNOW HE IS NOT HOMELESS. HE HAS STAYED W/ HIS STEPMOTHER AT THE [facility]. HE HAS A VISITOR , LAURA CHRISTIANSON, WHO CAME WHILE THE CM WAS VISITING. HE GAVE PERMISSION TO DISCUSS DISCHARGE W/ HER. MS CHRISTIANSON STATES HE CAN STAY WITH HER AND SHE WILL PROVIDE CARE. SHE STATES SHE HAS KNOWN HIM FOR A NUMBER OF YEARS. SHE STATES SHE OWNS A HOME WHICH IS HANDICAP ACCESSIBLE. SHE HAS PROVIDED CARE FOR OTHERS AND FEELS SHE CAN TAKE CARE OF HIM WITH INSTRUCTION AND TRAINING. WOULD BE GRATEFUL FOR ANY HOME HEALTH AND STATES SHE WOULD FOLLOW MEDICAL PLAN. THE PATIENT IS IN AGREEMENT W/ HER OFFER. HE HAS HAD 2 OTHER PERSONS WILLING TO HELP BUT MS CHRISTIANSON HAS HAD SOME TRAINING. SHE EXPRESSED CONCERN REGARDING HIS LOWER EXTREMITIES AND FEET. CM WILL NOTIFY WOUND CARE NURSE SHE SAW THE PATIENT EARLIER IN PATIENT'S STAY. PATIENT STATES HE HAS DIFFICULTY W/ AMBULATION SOMETIMES BECAAUSE OF HIS FEET. PATIENT AND MS CHRISTIANSON TO DISCUSS HOME OPTION. CM TO FOLLOW, DCP- Discharge Planning Updated by [id number]: Tata Velazco on 08/27/19 8:[address] [facility] FOR CARDIOLOGY, TO THE BEDSIDE THIS AM. SHE STATED SHE HAD SPOKEN WITH THE PATIENT AND TOLD HIM HE COULD NOT GO HOME. SHE STATES SHE FIRMLY ADVISED HIM TO PLAN ON REHAB SERVICES. SHE EXPLAINED HE IS TOO WEAK TO MANAGE AT HOME EVEN WITH [facility], SHE STATED THE PATIENT NEEDS AN ICD AND WILL NEED TO BE STRONGER. CM TO THE BEDSIDE TO SPEAK WITH THE PATIENT. THE VOLUNTEER HAD JUST ESCORTED VISITORS TO HIS ROOM. WILL REVISIT. DCP- Discharge Planning Updated by [id number]: Muriel Benz on 08/17/19 2:[address] Patient Name: MADHURI BATEMAN Admission Status: ER Accout number: [id number] Admission Date: 08-15-2019 : 1970 Admission Diagnosis: Attending: NOAH PARRA Current LOS: 2 Anticipated DC Date: Planned Disposition: Primary Insurance: MEDICAID [place] Discharge Planning Comments: CM MET WITH PATIENT AFTER OBTAINING VERBAL CONSENT. PATIENT STATES MAY NEED HOME HEALTH AND OXYGEN AT TIME OF DC. [facility] SIGNED FOR ANY HH AND ANY DME. MAY NEED WALK TEST PRIOR TO DC. NO OTHER NEEDS IDENTIFIED. CM TO FOLLOW AND ASSIST NEEDED. Securities Broker: Muriel Benz DCPIA - Discharge Planning Initial Assessment Updated by [id number]: Muriel Benz on 08/17/19 3:28 pm * Is the patient Alert and Oriented? Yes * PCP DANIKA * Pharmacy [facility] * Preadmission Environment Home with Family * ADLs Independent * Additional services required to return to the preadmission environment? Yes * Can the patient safely return to the preadmission environment? Yes * Has this patient been hospitalized within the prior 30 days at any hospital? No Coverage Notice Reviewer: [id number] - Murieltramaine Benz Notice Issued Date-Time: 08/17/2019 15:25 Notice Type: Patient Choice Letter Notice Delivered To: Patient Relationship to Patient: Sort Line Worker Name: Delivery Method: HAND - Hand Delivered Evelina Days: Prior Verbal Notification: Recipient Understood Notice: Yes Recipient Signature: Yes Med Rec Note Co-signed by Attending: Coverage Notice Comment: ANY HH, ANY DME COMPANY Last DP export: 09/01/19 4:59 pm Patient Name: MADHURI BATEMAN Page 14027 at 0847 All edits/amendments must be made on the electronic document DICTATION DATE: 09/02/19 0847 FOREMAN/PILE DRIVING AND ERECTION: RYLIE 09/02/19 08 RPT#: [id number] DC DATE: STATUS: ADM IN [facility] [address] [place] [address] END OF REPORT
[2019-09-02 11:29] VITALS: BP 123/80
[2019-09-02] MEDS ORDERED: COREG 3.1253.125 MG PO (14:37)
[2019-09-02] MEDS ORDERED: ZYLOPRIM100 MG PO (14:38)
[2019-09-02 15:19] VITALS: BP 109/74
--- NOTE | 2019-09-02 16:51 | MORECARE ---
CASE MANAGEMENT DISCHARGE SUMMARY PATIENT: MADHURI BATEMAN UNIT: [id number] ADM DATE: 08/15/19 AGE: 49 : 66 SEX: M ROOM/BED: D.0642 AUTHOR: NATALIA,DOC PHYSICIAN: REFERRING PHYSICIAN: NOAH PARRA MD DATE OF SERVICE: 09/02/19 Discharge Plan Patient Name: MADHURI BATEMAN Facility: [facility]:[place] : 1970 Planned Disposition: Home with Home Health Anticipated Discharge Date: 09/02/19 Discharge Date: Expected LOS: 18 Initial Reviewer: [id number] Initial Review Date: 08/17/2019 Generated: 09/02/19 5:51 pm Comments DCP- Discharge Planning Updated by [id number]: Milton Durán on 09/01/19 4:[address] Patient Name: MADHURI BATEMAN Encounter No: [id number] : 1970 Primary Insurance: MEDICAID [place] Anticipated DC Date: Planned Disposition: Home with Home Health External Planned Provider: NO HOME HEALTH PROVIDER PREFERENCE DCP follow-up note: CM MET WITH PT IN ROOM TO DISCUSS DISCHARGE NEEDS AND PLANNING. CM DISCUSSED AVAILABILITY OF [facility] IN PENIT[place]. PT REPORTS HE IS NOT GOING TO A NURSING FACILITY. PT REPORTS PLAN TO GO TO HIS FRIENDS HOME, [facility]. PT REPORTS [facility] AND HER FRIEND WILL ASSIST PT AT HOME. PT WILL ACCEPT HOME HEALTH AND HAS PREVIOUSLY SIGNED CHOICE FOR NO HOME HEALTH PREFERENCE. PT REPORTS HE MAY NEED A WALKER TO GO HOME AND REPORTS HE IS WORKING WITH PYSICAL THERAPY HERE TO GET STRONG ENOUGH TO GO HOME. PT PROVIDED PERMISSION TO SPEAK TO [facility] CHRISTIANSON REGARDING DISCHARGE PLANNING, TREATMENT AND NEEDS. CM MET WITH [facility] CHRISTIANSON IN [place]. [facility] REPORTS SHE AND HER FRIEND WILL TAKE PT HOME TO ASSIST WITH HIS CARE. SHE FEELS HE NEEDS HOME HEALTH FOR THERAPY. DISCHARGE AD[address]ESS IS [address] [place] [address]. [facility]'S NUMBER IS [phone]. [facility] REPORTS PT WILL HAVE 24 HOUR SUPERVISION AND CARE IN THE HOME. SHE HAS SEEN PT WITH THERAPY AND FEELS THEY CAN SAFELY CARE FOR PT AT HOME. PT TO DISCHARGE HOME TO FRIENDS [place] AND WILL ACCEPT HOME HEALTH FOR THERAPY SERVICES. CM TO ARRANGE HOME HEALTH WITH PHYSICIAN AGREEMENT AND ORDERS FOR HOME HEALTH. PT STATES HE NEEDS A FOOT / LEG BRACE THAT WAS MENTIONED BY HE THINKS, THERAPY. Milton Durán, CASE MANAGEMENT DCP- Discharge Planning Updated by [id number]: Tata Velazco on 08/27/19 3:[address] LATE ENTRY 1145 CM SPOKE WITH THE WOUND CARE NURSE, PERSONALLY, REQUESTING UPDATED ASSESSMENT OF PATIENT'S LOWER EXTREMITIES. INITIAL WOUND ASSESSMENT 08/17/2019. PATIENT'S VISITOR COMMENTING ON CONDITION OF LEGS AND FEET. DCP- Discharge Planning Updated by [id number]: Tata Velazco on 08/27/19 10:[address] CM TO THE BEDSIDE TO SPEAK WITH THE PATIENT. EXPLAINED I HAD REVIEWED HIS CHART AND SPOKEN W/ MS ROJO ON HER ROUNDS. THE PATIENT DOES NOT WANT REHAB , HE HAS MEDICAID AND SKILLED REHAB WOULD BE HIS ONLY OPTION. HE FEELS NO ONE IS LISTENING TO HIM OR RESPECTING HIS CHOICES. HE WANTS CM TO KNOW HE IS NOT HOMELESS. HE HAS STAYED W/ HIS STEPMOTHER AT THE [facility]. HE HAS A VISITOR , LAURA CHRISTIANSON, WHO CAME WHILE THE CM WAS VISITING. HE GAVE PERMISSION TO DISCUSS DISCHARGE W/ HER. MS CHRISTIANSON STATES HE CAN STAY WITH HER AND SHE WILL PROVIDE CARE. SHE STATES SHE HAS KNOWN HIM FOR A NUMBER OF YEARS. SHE STATES SHE OWNS A HOME WHICH IS HANDICAP ACCESSIBLE. SHE HAS PROVIDED CARE FOR OTHERS AND FEELS SHE CAN TAKE CARE OF HIM WITH INSTRUCTION AND TRAINING. WOULD BE GRATEFUL FOR ANY HOME HEALTH AND STATES SHE WOULD FOLLOW MEDICAL PLAN. THE PATIENT IS IN AGREEMENT W/ HER OFFER. HE HAS HAD 2 OTHER PERSONS WILLING TO HELP BUT MS CHRISTIANSON HAS HAD SOME TRAINING. SHE EXPRESSED CONCERN REGARDING HIS LOWER EXTREMITIES AND FEET. CM WILL NOTIFY WOUND CARE NURSE SHE SAW THE PATIENT EARLIER IN PATIENT'S STAY. PATIENT STATES HE HAS DIFFICULTY W/ AMBULATION SOMETIMES BECAAUSE OF HIS FEET. PATIENT AND MS CHRISTIANSON TO DISCUSS HOME OPTION. CM TO FOLLOW, DCP- Discharge Planning Updated by [id number]: Tata Velzaco on 08/27/19 8:[address] [facility] FOR CARDIOLOGY, TO THE BEDSIDE THIS AM. SHE STATED SHE HAD SPOKEN WITH THE PATIENT AND TOLD HIM HE COULD NOT GO HOME. SHE STATES SHE FIRMLY ADVISED HIM TO PLAN ON REHAB SERVICES. SHE EXPLAINED HE IS TOO WEAK TO MANAGE AT HOME EVEN WITH [facility], SHE STATED THE PATIENT NEEDS AN ICD AND WILL NEED TO BE STRONGER. CM TO THE BEDSIDE TO SPEAK WITH THE PATIENT. THE VOLUNTEER HAD JUST ESCORTED VISITORS TO HIS ROOM. WILL REVISIT. DCP- Discharge Planning Updated by [id number]: Murieltramaine Benz on 08/17/19 2:[address] Patient Name: MADHURI BATEMAN Admission Status: ER Accout number: [id number] Admission Date: 08-15-2019 : 1970 Admission Diagnosis: Attending: NOAH APRRA Current LOS: 2 Anticipated DC Date: Planned Disposition: Primary Insurance: MEDICAID [place] Discharge Planning Comments: CM MET WITH PATIENT AFTER OBTAINING VERBAL CONSENT. PATIENT STATES MAY NEED HOME HEALTH AND OXYGEN AT TIME OF DC. [facility] SIGNED FOR ANY HH AND ANY DME. MAY NEED WALK TEST PRIOR TO DC. NO OTHER NEEDS IDENTIFIED. CM TO FOLLOW AND ASSIST NEEDED. Fruit Press Operator: Muriel Benz DCPIA - Discharge Planning Initial Assessment Updated by [id number]: Muriel Benz on 08/17/19 3:28 pm * Is the patient Alert and Oriented? Yes * PCP DANIKA * Pharmacy [facility] * Preadmission Environment Home with Family * ADLs Independent * Additional services required to return to the preadmission environment? Yes * Can the patient safely return to the preadmission environment? Yes * Has this patient been hospitalized within the prior 30 days at any hospital? No Coverage Notice Reviewer: [id number] - Muriel Benz Notice Issued Date-Time: 08/17/2019 15:25 Notice Type: Patient Choice Letter Notice Delivered To: Patient Relationship to Patient: Workers Compensation Analyst Name: Delivery Method: HAND - Hand Delivered Evelina Days: Prior Verbal Notification: Recipient Understood Notice: Yes Recipient Signature: Yes Med Rec Note Co-signed by Attending: Coverage Notice Comment: ANY HH, ANY DME COMPANY Last DP export: 09/02/19 7:47 am Patient Name: MADHURI BATEMAN Page [id number] at 1651 All edits/amendments must be made on the electronic document DICTATION DATE: 09/02/191650 MEATMAN: RYLIE 09/02/191650 RPT#: [id number] DC DATE: STATUS: ADM IN [facility] [address] [place] [address] END OF REPORT
--- NOTE | 2019-09-02 17:00 | MORECARE ---
CASE MANAGEMENT DISCHARGE SUMMARY PATIENT: MADHURI BATEMAN UNIT: [id number] ADM DATE: 08/15/19 AGE: 49 : 66 SEX: M ROOM/BED: D.8879 AUTHOR: NATALIA,DOC PHYSICIAN: REFERRING PHYSICIAN: NOAH PARRA MD DATE OF SERVICE: 09/02/19 Discharge Plan Patient Name: MADHURI BATEMAN Facility: [facility]:[place] : 1970 Planned Disposition: Home with Home Health Anticipated Discharge Date: 09/02/19 Discharge Date: Expected LOS: 18 Initial Reviewer: [id number] Initial Review Date: 08/17/2019 Generated: 09/02/19 5:59 pm Comments DCP- Discharge Planning Updated by [id number]: Milton Durán on 09/02/19 4:[address] Patient Name: MADHURI BATEMAN Encounter No: [id number] : 1970 Primary Insurance: MEDICAID [place] Anticipated DC Date: 09-02-2019 Planned Disposition: Home with Home Health External Planned Provider: [facility] DCP follow-up note: DISCHARGE ORDER RECEIVED. PT CALLED HIS FRIEND FOR DISCHARGE HOME TODAY. PT'S FRIEND SPOKE TO IN [facility], SHE REPORTS SHE IS NOT ABLE TO CARE FOR PT AT HER HOME. SHE INFORMED PT AND LEFT CRYING. CM LATER RECEIVED CALL FROM JOHNNIE HORN, PT'S SISTER, WHO INFORMED CM THAT SHE IS TAKING PT HOME WITH HER TODAY. PT AGREES WITH PLAN AND DOES NOT WANT TO STAY IN HOSPITAL AND DOES NOT WANT USP CARE PLACEMENT IN CARE HOME. JOHNNIE INFORMED THAT SHE IS A LABORER [employer]MI[employer] AND IS ABLE TO TAKE CARE OF PT AT HER HOME. PT STILL WANTS HOME HEALTH. DISCHARGE ADDRESS IS: JOHNNIE HORN, [address] [place] [address],. [place] [address] CM CALLED [facility], , SPOKE TO LAURA WHO TOOK REFERRAL INFORMATION AND WILL PLACE PT BACK ON SCHEDULE FOR ADMISSION TO HOME HEALTH CARE. CM FAXED DISCHARGE INFORMATION TO [facility] AT [phone]. EXTRACTING MACHINE OPERATOR NURSE NOTIFIED. SNEHAL Coronado DCP- Discharge Planning Updated by [id number]: Milton Durán on 09/01/19 4:[address] Patient Name: MADHURI BATEMAN Encounter No: [id number] : 1970 Primary Insurance: MEDICAID [facility] DC Date: Planned Disposition: Home with Home Health External Planned Provider: NO HOME HEALTH PROVIDER PREFERENCE DCP follow-up note: CM MET WITH PT IN ROOM TO DISCUSS DISCHARGE NEEDS AND PLANNING. CM DISCUSSED AVAILABILITY OF [facility] IN [place]. PT REPORTS HE IS NOT GOING TO A NURSING FACILITY. PT REPORTS PLAN TO GO TO HIS FRIENDS HOME, [facility]. PT REPORTS [facility] AND HER FRIEND WILL ASSIST PT AT HOME. PT WILL ACCEPT HOME HEALTH AND HAS PREVIOUSLY SIGNED CHOICE FOR NO HOME HEALTH PREFERENCE. PT REPORTS HE MAY NEED A WALKER TO GO HOME AND REPORTS HE IS WORKING WITH PYSICAL THERAPY HERE TO GET STRONG ENOUGH TO GO HOME. PT PROVIDED PERMISSION TO SPEAK TO [facility] CHRISTIANSON REGARDING DISCHARGE PLANNING, TREATMENT AND NEEDS. CM MET WITH [facility] SAMMY IN [place]. [facility] REPORTS SHE AND HER FRIEND WILL TAKE PT HOME TO ASSIST WITH HIS CARE. SHE FEELS HE NEEDS HOME HEALTH FOR THERAPY. DISCHARGE ADDRESS IS [address] [place] [address]. [facility]'S NUMBER IS [phone]. [facility] REPORTS PT WILL HAVE 24 HOUR SUPERVISION AND CARE IN THE HOME. SHE HAS SEEN PT WITH THERAPY AND FEELS THEY CAN SAFELY CARE FOR PT AT HOME. PT TO DISCHARGE HOME TO FRIENDS [place] AND WILL ACCEPT HOME HEALTH FOR THERAPY SERVICES. CM TO ARRANGE HOME HEALTH WITH PHYSICIAN AGREEMENT AND ORDERS FOR HOME HEALTH. PT STATES HE NEEDS A FOOT / LEG BRACE THAT WAS MENTIONED BY HE THINKS, THERAPY. Milton Durán, CASE MANAGEMENT DCP- Discharge Planning Updated by [id number]: Tata Velazco on 08/27/19 3:[address] LATE ENTRY 1145 CM SPOKE WITH THE WOUND CARE NURSE, PERSONALLY, REQUESTING UPDATED ASSESSMENT OF PATIENT'S LOWER EXTREMITIES. INITIAL WOUND ASSESSMENT 08/17/2019. PATIENT'S VISITOR COMMENTING ON CONDITION OF LEGS AND FEET. DCP- Discharge Planning Updated by [id number]: Tata Velazco on 08/27/19 10:[address] CM TO THE BEDSIDE TO SPEAK WITH THE PATIENT. EXPLAINED I HAD REVIEWED HIS CHART AND SPOKEN W/ MS ROJO ON HER ROUNDS. THE PATIENT DOES NOT WANT REHAB , HE HAS MEDICAID AND SKILLED REHAB WOULD BE HIS ONLY OPTION. HE FEELS NO ONE IS LISTENING TO HIM OR RESPECTING HIS CHOICES. HE WANTS CM TO KNOW HE IS NOT HOMELESS. HE HAS STAYED W/ HIS STEPMOTHER AT THE [facility]. HE HAS A VISITOR , LAURA CHRISTIANSON, WHO CAME WHILE THE CM WAS VISITING. HE GAVE PERMISSION TO DISCUSS DISCHARGE W/ HER. MS CHRISTIANSON STATES HE CAN STAY WITH HER AND SHE WILL PROVIDE CARE. SHE STATES SHE HAS KNOWN HIM FOR A NUMBER OF YEARS. SHE STATES SHE OWNS A HOME WHICH IS HANDICAP ACCESSIBLE. SHE HAS PROVIDED CARE FOR OTHERS AND FEELS SHE CAN TAKE CARE OF HIM WITH INSTRUCTION AND TRAINING. WOULD BE GRATEFUL FOR ANY HOME HEALTH AND STATES SHE WOULD FOLLOW MEDICAL PLAN. THE PATIENT IS IN AGREEMENT W/ HER OFFER. HE HAS HAD 2 OTHER PERSONS WILLING TO HELP BUT MS CHRISTIANSON HAS HAD SOME TRAINING. SHE EXPRESSED CONCERN REGARDING HIS LOWER EXTREMITIES AND FEET. CM WILL NOTIFY WOUND CARE NURSE SHE SAW THE PATIENT EARLIER IN PATIENT'S STAY. PATIENT STATES HE HAS DIFFICULTY W/ AMBULATION SOMETIMES BECAAUSE OF HIS FEET. PATIENT AND MS CHRISTIANSON TO DISCUSS HOME OPTION. CM TO FOLLOW, DCP- Discharge Planning Updated by [id number]: Tata Velazco on 08/27/19 8:[address] [facility] FOR CARDIOLOGY, TO THE BEDSIDE THIS AM. SHE STATED SHE HAD SPOKEN WITH THE PATIENT AND TOLD HIM HE COULD NOT GO HOME. SHE STATES SHE FIRMLY ADVISED HIM TO PLAN ON REHAB SERVICES. SHE EXPLAINED HE IS TOO WEAK TO MANAGE AT HOME EVEN WITH [facility], SHE STATED THE PATIENT NEEDS AN ICD AND WILL NEED TO BE STRONGER. CM TO THE BEDSIDE TO SPEAK WITH THE PATIENT. THE VOLUNTEER HAD JUST ESCORTED VISITORS TO HIS ROOM. WILL REVISIT. DCP- Discharge Planning Updated by [id number]: Muriel Benz on 08/17/19 2:[address] Patient Name: MADHURI BATEMAN Admission Status: ER Accout number: [id number] Admission Date: 08-15-2019 : 1970 Admission Diagnosis: Attending: NOAH PARRA Current LOS: 2 Anticipated DC Date: Planned Disposition: Primary Insurance: MEDICAID [place] Discharge Planning Comments: CM MET WITH PATIENT AFTER OBTAINING VERBAL CONSENT. PATIENT STATES MAY NEED HOME HEALTH AND OXYGEN AT TIME OF DC. [facility] SIGNED FOR ANY HH AND ANY DME. MAY NEED WALK TEST PRIOR TO DC. NO OTHER NEEDS IDENTIFIED. CM TO FOLLOW AND ASSIST NEEDED. Last Waxer: Muriel Benz DCPIA - Discharge Planning Initial Assessment Updated by [id number]: Murieltramaine Benz on 08/17/19 3:28 pm * Is the patient Alert and Oriented? Yes * PCP DANIKA * Pharmacy [facility] * Preadmission Environment Home with Family * ADLs Independent * Additional services required to return to the preadmission environment? Yes * Can the patient safely return to the preadmission environment? Yes * Has this patient been hospitalized within the prior 30 days at any hospital? No External Providers External Provider: [facility] Next Contact Date: 09/02/2019 Service Request Date: Service Type: Resolution: Reviewer: Comments: Coverage Notice Reviewer: [id number] - Muriel Benz Notice Issued Date-Time: 08/17/2019 15:25 Notice Type: Patient Choice Letter Notice Delivered To: Patient Relationship to Patient: Smt Technician Name: Delivery Method: HAND - Hand Delivered Evelina Days: Prior Verbal Notification: Recipient Understood Notice: Yes Recipient Signature: Yes Med Rec Note Co-signed by Attending: Coverage Notice Comment: ANY HH, ANY DME COMPANY Last DP export: 09/02/19 3:51 pm Patient Name: MADHURI BATEMAN Page 20046 at 1700 All edits/amendments must be made on the electronic document DICTATION DATE: 09/02/191658 COOK SPECIALTY: RYLIE 09/02/191658 RPT#: [id number] DC DATE: STATUS: ADM IN [facility] [address] [place] [address] END OF REPORT
== END 2019-09-02 17:51 | disposition home health service (06) | DRG 682 ==
LOC: D.ER 03:30 → D.ICU 04:58 → D.MS 08-17 17:35 → D.ICU 08-17 17:40 → D.M2 08-24 16:11
PROVIDERS: Emergency Medicine; Family Medicine; Internal Medicine; ADMIT Internal Medicine Nephrology; ATTEND Internal Medicine Nephrology
PROC: 05HM33Z Insertion of Infusion Device into Right Internal Jugular Vein, Percutaneous Approach (ICD-10-PCS; 2019-08-15)
PROC: 05HM33Z Insertion of Infusion Device into Right Internal Jugular Vein, Percutaneous Approach (ICD-10-PCS; principal; 2019-08-17)
DX: N17.9 Acute kidney failure, unspecified (principal); I50.43 Acute on chronic combined systolic (congestive) and diastolic (congestive) heart failure; J96.01 Acute respiratory failure with hypoxia; J69.0 Pneumonitis due to inhalation of food and vomit; I24.8 Other forms of acute ischemic heart disease; I42.8 Other cardiomyopathies; E87.1 Hypo-osmolality and hyponatremia; Z68.42 Body mass index [BMI] 45.0-49.9, adult; I48.0 Paroxysmal atrial fibrillation; Z79.01 Long term (current) use of anticoagulants; G47.33 Obstructive sleep apnea (adult) (pediatric); I27.20 Pulmonary hypertension, unspecified; Z91.14 Patient's other noncompliance with medication regimen; N18.3 Chronic kidney disease, stage 3 (moderate); R60.1 Generalized edema; D50.9 Iron deficiency anemia, unspecified; B95.7 Other staphylococcus as the cause of diseases classified elsewhere; E66.01 Morbid (severe) obesity due to excess calories

== ENCOUNTER 2019-11-25 12:38 | Inpatient (IN) | payer MEDICAID ==
[~2019-11-25] VITALS: Ht 175.3 cm; Wt 112.4 kg
[~2019-11-25 12:38] MED LIST changes: +COREG 3.1253.125 MG PO; +COREG25 MG PO; +HYDROCODON-ACE1 EA10 PO; +ZYLOPRIM100 MG PO
[2019-11-26 13:57] VITALS: Ht 175.3 cm; Wt 112.4 kg
[2019-12-04] MEDS ORDERED: LEVAQUIN750 MG PO (08:18)
[2019-12-04] MEDS ORDERED: ENTRESTO 24 MG1 EACH PO (08:19)
[2019-12-04] MEDS ORDERED: ATIVAN0.5 MG PO (08:19)
[2019-12-04] MEDS ORDERED: DAKIN'S 0.25%480 ML TOPICAL (08:20)
[2019-12-04] MEDS ORDERED: COLACE100 MG PO (08:20)
[2019-12-04] MEDS ORDERED: MIRALAX17 GM PO (08:20)
[2019-12-04] MEDS ORDERED: PEPCID PO (08:20)
[2019-12-04 12:30] VITALS: BP 149/77
== END 2019-12-04 15:35 | DRG 571 ==
LOC: D.MS 12:38 → D.SDCHOLD 11-27 15:34 → D.MS 11-27 15:36
PROVIDERS: ADMIT Family Medicine; ATTEND Family Medicine
PROC: 0JBP0ZZ Excision of Left Lower Leg Subcutaneous Tissue and Fascia, Open Approach (ICD-10-PCS; principal; 2019-11-27)
PROC: 0JBN0ZZ Excision of Right Lower Leg Subcutaneous Tissue and Fascia, Open Approach (ICD-10-PCS; 2019-11-27)
DX: S81.802A Unspecified open wound, left lower leg, initial encounter (principal); L03.116 Cellulitis of left lower limb; I42.9 Cardiomyopathy, unspecified; I13.0 Hypertensive heart and chronic kidney disease with heart failure and stage 1 through stage 4 chronic kidney disease, or unspecified chronic kidney disease; L03.115 Cellulitis of right lower limb; I50.9 Heart failure, unspecified; N18.9 Chronic kidney disease, unspecified; I48.0 Paroxysmal atrial fibrillation; S81.801A Unspecified open wound, right lower leg, initial encounter; E66.01 Morbid (severe) obesity due to excess calories; Z68.39 Body mass index [BMI] 39.0-39.9, adult